=== PATIENT | male | born 1955 | race Caucasian/White ===

== ENCOUNTER 2016-10-21 22:15 | Emergency (ER) | payer MEDICARE, OTHER ==
[2016-10-21] MEDS ORDERED: Sodium Chloride 0.9% 10 ML Syringe FLUSH PRN (23:47)
[2016-10-21] MEDS ORDERED: HYDROmorphone 1 MG/ML Syringe IVPUSH ONE (23:48)
[2016-10-21] MEDS ORDERED: Ondansetron 4 MG/2 ML SDV IVPUSH ONE (23:48)
[2016-10-22] MEDS ORDERED: Iopamidol 612 MG/ML 100 ML Bottle IV PRN (00:18)
[2016-10-22] MEDS ORDERED: Sodium Chloride 0.9% 75 ML IV ONE (00:18)
[2016-10-22] MEDS ORDERED: Sodium Chloride 0.9% 10 ML Syringe FLUSH PRN (00:18)
[2016-10-22] MEDS ORDERED: HYDROmorphone 1 MG/ML Syringe IVPUSH ONE (01:00)
[2016-10-22] MEDS ORDERED: Sodium Chloride 0.9% 1,000 ML IV SCH (01:15)
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
[2016-10-22 02:13] VITALS: BP 128/75
== END 2016-10-22 03:18 ==
LOC: JP.ED 22:15
DX: S22.5XXA Flail chest, initial encounter for closed fracture (principal); F32.9 Major depressive disorder, single episode, unspecified; R56.9 Unspecified convulsions; Z79.82 Long term (current) use of aspirin; Z79.899 Other long term (current) drug therapy; Z87.891 Personal history of nicotine dependence; Z98.890 Other specified postprocedural states; W01.190A Fall on same level from slipping, tripping and stumbling with subsequent striking against furniture, initial encounter
CPT/HCPCS: 36415; 71260; 80053; 84484; 85025; 85610; 85730; 93005; 93010; 96361; 96374; 96375; 96376; 99284; 99285; J1170; J2405; J7030; J7040; J7050; Q9967

== ENCOUNTER 2016-10-25 17:45 | Inpatient (IN) | payer MEDICARE, OTHER ==
[2016-10-25] MEDS ORDERED: HYDROmorphone 1 MG/ML Syringe IVPUSH ONE (18:04)
[2016-10-25] MEDS ORDERED: Sodium Chloride 0.9% 10 ML Syringe FLUSH PRN (18:05)
[2016-10-25] MEDS ORDERED: Lactated Ringers 1,000 ML IV ONE (18:05)
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
[2016-10-25] MEDS ORDERED: Propofol 200 MG/20 ML SDV ONE (18:39)
[2016-10-25] MEDS ORDERED: Bupivacaine 0.5%/EPINEPHrine 1:200,000 50 ML MDV ONE (19:00)
[2016-10-25] MEDS ORDERED: Ondansetron 4 MG/2 ML SDV IVPUSH PRN (19:52)
[2016-10-25] MEDS: Labetalol 20 MG/4 ML Syringe IVPUSH PRN (20:14)
[2016-10-25] MEDS ORDERED: Dextrose 5%-0.45% NaCl 1,000 ML IV SCH (20:15)
[2016-10-25] MEDS ORDERED: Labetalol 20 MG/4 ML Syringe ONE (20:16)
[2016-10-25] MEDS: levETIRAcetam 250 MG Tab PO SCH (22:20)
[2016-10-25] MEDS: fentaNYL 100 MCG/2 ML SDV IVPUSH PRN (22:37)
[2016-10-26] MEDS: fentaNYL 100 MCG/2 ML SDV IVPUSH PRN ×6 (03:26→22:14)
[2016-10-26] MEDS ORDERED: D5 1/2 NS w/ 20 mEq/L KCl 1,000 ML ONE (06:45)
[2016-10-26] MEDS: D5 1/2 NS w/ 20 mEq/L KCl 1,000 ML IV SCH ×2 (06:47→16:13)
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
[2016-10-26] MEDS: Docusate Sodium 100 MG Cap PO SCH ×2 (08:37→20:48)
[2016-10-26] MEDS: Citalopram 20 MG Tab PO SCH (08:37)
[2016-10-26] MEDS: levETIRAcetam 250 MG Tab PO SCH ×2 (08:37→20:48)
--- NOTE | 2016-10-26 09:43 | CR ---
Portable chest Correlation is made with chest CT obtained 3 days earlier. There are no fractures of the left seventh-11th ribs. There is a moderate left pleural effusion. The re is a very tiny left apical pneumothorax. There is subcutaneous emphysema along the lateral left c hest wall. The right lung is unremarkable. The heart and vascular structures are within normal limit s. Impression: 1. Multiple left-sided rib fractures. Moderate left pleural effusion. No significant pneumothorax.
--- NOTE | 2016-10-26 09:45 | CR ---
Portable chest Comparison: One hour prior. There has been interval placement of a left chest tube. The left chest tube is visualized in the low er left hemithorax. There is mild reduction in the size of the left effusion. There is no significan t pneumothorax. Again noted are multiple left sided rib fractures. There is a continuous air along t he lateral chest wall. Impression: 1. Interval placement of left chest tube with mild decrease of left pleural effusion. There is no si gnificant pneumothorax. 2. Multiple left rib fractures.
--- NOTE | 2016-10-26 09:47 | CR ---
Portable chest Comparison: Previous day. The left chest tube the lower hemithorax is unchanged. There is mild reduction of the left pleural e ffusion. There is a tiny left apical pneumothorax. There is lateral chest wall air. The heart and va scular structures are stable. Impression: 1. Left chest tube. Interval decrease of left pleural effusion. 2. Tiny left apical pneumothorax.
[2016-10-26] MEDS: Labetalol 20 MG/4 ML Syringe IVPUSH PRN (16:26)
[2016-10-26] MEDS ORDERED: D5 1/2 NS w/ 20 mEq/L KCl 1,000 ML IV SCH (17:30)
[2016-10-26] MEDS: Nitroglycerin 2% Oint 1 GM UD Packet TOP SCH (17:34)
[2016-10-27] MEDS: fentaNYL 100 MCG/2 ML SDV IVPUSH PRN ×5 (02:55→19:51)
[2016-10-27] MEDS: Docusate Sodium 100 MG Cap PO SCH ×2 (08:10→20:59)
[2016-10-27] MEDS: Citalopram 20 MG Tab PO SCH (08:10)
[2016-10-27] MEDS: levETIRAcetam 250 MG Tab PO SCH ×2 (08:11→20:59)
[2016-10-27] MEDS: Nitroglycerin 2% Oint 1 GM UD Packet TOP SCH (08:11)
--- NOTE | 2016-10-27 09:17 | CR ---
Portable chest Comparison: Previous day. Findings: Multiple left rib fractures are again noted. There is chest wall emphysema on the left. Th ere is no pneumothorax visualized. There is bone loss of the left lung as well as a small pleural ef fusion. Impression: 1. Left-sided rib fractures. No evidence of significant pneumothorax. 2. Small left pleural effusion and left basilar volume loss.
--- NOTE | 2016-10-27 10:36 | PCM.SURGPN ---
- General Info Date of Service: 10/27/16 Date of Surgery/Procedure: 10/25/16 POD#: 2 Post-Op Diagnosis: Left hemothorax Admission Diagnosis/Problem: Hemothorax Functional Status: Reports: pain controlled, tolerating diet, ambulating, urinating, incentive spirometry - Review of Systems General: Reports: No Symptoms HEENT: Reports: no symptoms Pulmonary: Reports: no symptoms Cardiovascular: Reports: No Symptoms Gastrointestinal: Reports: No symptoms, Flatus, Other (Had a BM) Genitourinary: Reports: no symptoms Musculoskeletal: Reports: no symptoms Skin: Reports: no symptoms Neurological: Reports: No Symptoms Psychiatric: Reports: no symptoms - Patient Data Vitals - most recent: Last Vital Signs Temp 98.6 F 10/27/16 08:00 Pulse 70 10/27/16 08:00 Resp 20 10/27/16 09:37 BP 146/90 H 10/27/16 08:00 Pulse Ox 93 L 10/27/16 09:37 Weight - most recent: 146 lb 9.718 oz I&O - last 24 hours: Intake & Output 10/26/16 10/27/16 10/27/16 22:59 06:59 14:59 Intake Total 2149 273 480 Output Total 400 1210 300 Balance 1749 -937 180 Lab Results last 24 hrs: Laboratory Results - last 24 hr 10/26/16 10/26/16 10/27/16 Range/Units 11:59 17:53 00:01 WBC 10.9 10.6 10.8 (4.5-11.0) K/uL RBC 3.01 L 2.90 L 2.79 L (4.30-5.90) M/uL Hgb 9.9 L 9.9 L 9.4 L (12.0-15.0) g/dL Hct 29.0 L 28.2 L 27.0 L (40.0-54.0) % MCV 96 97 97 (80-98) fL MCH 33 H 34 H 34 H (27-31) pg MCHC 34 35 35 (32-36) % Plt Count 215 193 207 (150-400) K/uL 10/27/16 Range/Units 05:58 WBC 10.0 (4.5-11.0) K/uL RBC 2.69 L (4.30-5.90) M/uL Hgb 8.9 L (12.0-15.0) g/dL Hct 25.9 L (40.0-54.0) % MCV 96 (80-98) fL MCH 33 H (27-31) pg MCHC 34 (32-36) % Plt Count 199 (150-400) K/uL Med Orders - Current: Current Medications Citalopram Hydrobromide (Celexa) 40 mg PO DAILY [facility] Last Admin: 10/27/16 08:10 Dose: 40 mg Clonidine HCl (Catapres) 0.1 mg PO BID [facility] Docusate Sodium (Colace) 100 mg PO BID [facility] Last Admin: 10/27/16 08:10 Dose: 100 mg Fentanyl (Sublimaze) 50 mcg IVPUSH Q1H PRN PRN Reason: Pain (severe 7-10) Last Admin: 10/27/16 10:03 Dose: 50 mcg Potassium Chloride/Dextrose/Sod Cl (D5 1/2 Ns W/ 20 Meq/L Kcl) 1,000 mls @ 25 mls/hr IV ASDIRECTED [facility] Labetalol HCl (Normodyne) 0 mg IVPUSH Q1H PRN; Protocol PRN Reason: Hypertension Last Admin: 10/26/16 16:26 Dose: 15 mg Levetiracetam (Keppra) 500 mg PO BID [facility] Last Admin: 10/27/16 08:11 Dose: 500 mg Nitroglycerin (Nitro-Bid 2%) 1 gm TOP DAILY [facility] Last Admin: 10/27/16 08:11 Dose: 1 gm Ondansetron HCl (Zofran) 4 mg IVPUSH Q6H PRN PRN Reason: Nausea/Vomiting Sodium Chloride (Saline Flush) 10 ml FLUSH ASDIRECTED PRN PRN Reason: Keep Vein Open Last Admin: 10/25/16 18:31 Dose: 10 ml Discontinued Medications Bupivacaine HCl/Epinephrine Bitart ([place] 0.5%/Epinephrine 1:200,000) Confirm Administered Dose 50 ml .ROUTE .STK-MED ONE Stop: 10/25/16 19:01 Last Admin: 10/25/16 20:03 Dose: 10 ml Hydromorphone HCl (Dilaudid) 1 mg IVPUSH ONETIME ONE Stop: 10/25/16 18:05 Last Admin: 10/26/16 08:14 Dose: Not Given Lactated Ringer's (Ringers, Lactated) 1,000 mls @ 999 mls/hr IV BOLUS ONE Stop: 10/25/16 19:05 Last Admin: 10/25/16 18:05 Dose: 999 mls/hr Dextrose/Sodium Chloride (Dextrose 5%-1/2 Ns) 1,000 mls @ 125 mls/hr IV ASDIRECTED [facility] Last Admin: 10/26/16 01:00 Dose: 125 mls/hr Potassium Chloride/Dextrose/Sod Cl (D5 1/2 Ns W/ 20 Meq/L Kcl) 1,000 mls @ 100 mls/hr IV ASDIRECTED [facility] Last Admin: 10/26/16 16:13 Dose: 100 mls/hr Potassium Chloride/Dextrose/Sod Cl (D5 1/2 Ns W/ 20 Meq/L Kcl) Confirm Administered Dose 1,000 mls @ as directed .ROUTE .STK-MED ONE Stop: 10/26/16 06:46 Last Admin: 10/26/16 06:50 Dose: 100 ml Labetalol HCl (Normodyne) Confirm Administered Dose 20 mg .ROUTE .STK-MED ONE Stop: 10/25/16 20:17 Last Admin: 10/25/16 23:30 Dose: Not Given Propofol (Diprivan 20 Ml) Confirm Administered Dose 200 mg .ROUTE .STK-MED ONE Stop: 10/25/16 18:40 - Exam Wound/Incisions: dressing dry and intact, drainage (Chest tube), other (Large left flank ecchymosis) General: alert, oriented, cooperative, no acute distress Lungs: Normal respiratory effort, Other (Crepitus, left) Cardiovascular: Regular Rate, Regular Rhythm Abdomen: bowel sounds present, soft, no tenderness, no distension Extremities: no edema Skin: warm, intact Neurological: no new focal deficit Psy/Mental Status: alert, normal affect, normal mood - Problem List & Annotations (1) Hemothorax on left SNOMED Code(s): 86616197 Code(s): J94.2 - HEMOTHORAX Status: Acute Current Visit: Yes - Problem List Review Problem List Initiated/Reviewed/Updated: Yes - My Orders Last 24 Hours: Active Orders 24 hr Category Date Time Status CXR [Chest 1V Frontal] [CR] DAILY Exams 10/28/16 05:00 Ordered CXR [Chest 1V Frontal] [CR] DAILY Exams 04/30/17 05:00 Ordered CXR [Chest 1V Frontal] [CR] DAILY Exams 10/30/16 05:00 Ordered CBC W/O DIFF,HEMOGRAM [HEME] Q6H Lab 10/27/16 11:59 Ordered CBC W/O DIFF,HEMOGRAM [HEME] Q6H Lab 10/27/16 17:59 Ordered CBC W/O DIFF,HEMOGRAM [HEME] Q6H Lab 10/27/16 23:59 Ordered CBC W/O DIFF,HEMOGRAM [HEME] Q6H Lab 10/28/16 05:59 Ordered CBC W/O DIFF,HEMOGRAM [HEME] Q6H Lab 10/28/16 11:59 Ordered CBC W/O DIFF,HEMOGRAM [HEME] Q6H Lab 10/28/16 17:59 Ordered D5 1/2 NS w/ 20 mEq/L KCl 1,000 ml Med 10/26/16 17:30 Active IV ASDIRECTED Nitroglycerin [Nitro-Bid 2%] Med 10/26/16 17:30 Active 1 gm TOP DAILY cloNIDine [Catapres] Med 10/27/16 10:30 Active 0.1 mg PO BID Medication Orders Citalopram Hydrobromide (Celexa) 40 mg PO DAILY [facility] Last Admin: 10/27/16 08:10 Dose: 40 mg Admin: 10/26/16 08:37 Dose: 40 mg Clonidine HCl (Catapres) 0.1 mg PO BID [facility] Docusate Sodium (Colace) 100 mg PO BID [facility] Last Admin: 10/27/16 08:10 Dose: 100 mg Admin: 10/26/16 20:48 Dose: 100 mg Admin: 10/26/16 08:37 Dose: 100 mg Fentanyl (Sublimaze) 50 mcg IVPUSH Q1H PRN PRN Reason: Pain (severe 7-10) Last Admin: 10/27/16 10:03 Dose: 50 mcg Admin: 10/27/16 08:11 Dose: 50 mcg Admin: 10/27/16 02:55 Dose: 50 mcg Admin: 10/26/16 22:14 Dose: 50 mcg Admin: 10/26/16 20:53 Dose: 50 mcg Admin: 10/26/16 15:03 Dose: 50 mcg Admin: 10/26/16 08:38 Dose: 50 mcg Admin: 10/26/16 04:50 Dose: 50 mcg Admin: 10/26/16 03:26 Dose: 50 mcg Admin: 10/25/16 22:37 Dose: 50 mcg Potassium Chloride/Dextrose/Sod Cl (D5 1/2 Ns W/ 20 Meq/L Kcl) 1,000 mls @ 25 mls/hr IV ASDIRECTED [facility] Labetalol HCl (Normodyne) 0 mg IVPUSH Q1H PRN; Protocol PRN Reason: Hypertension Last Admin: 10/26/16 16:26 Dose: 15 mg Admin: 10/25/16 20:14 Dose: 10 mg Levetiracetam (Keppra) 500 mg PO BID [facility] Last Admin: 10/27/16 08:11 Dose: 500 mg Admin: 10/26/16 20:48 Dose: 500 mg Admin: 10/26/16 08:37 Dose: 500 mg Admin: 10/25/16 22:20 Dose: 500 mg Nitroglycerin (Nitro-Bid 2%) 1 gm TOP DAILY [facility] Last Admin: 10/27/16 08:11 Dose: 1 gm Admin: 10/26/16 17:34 Dose: 1 gm Ondansetron HCl (Zofran) 4 mg IVPUSH Q6H PRN PRN Reason: Nausea/Vomiting Sodium Chloride (Saline Flush) 10 ml FLUSH ASDIRECTED PRN PRN Reason: Keep Vein Open Last Admin: 10/25/16 18:31 Dose: 10 ml - Assessment Assessment (Free Text/Narrative):: His Hgb is slowly falling. CXR still with fluid in his left base. Subcutaneous emphysema. His BP has been up to a high of 203 systolic. No evidence of DT's. - Plan Plan (Free Text/Narrative):: Clonidine 0.1 mg po bid. Vitamin K. Continue to follow.
[2016-10-27] MEDS: cloNIDine 0.1 MG Tab PO SCH ×2 (10:42→20:58)
--- NOTE | 2016-10-27 10:43 | PCM.SURGPN ---
- General Info Date of Service: 10/26/16 Date of Surgery/Procedure: 10/25/16 POD#: 1 Functional Status: Reports: pain controlled, urinating, incentive spirometry - Review of Systems General: Reports: No Symptoms HEENT: Reports: no symptoms Pulmonary: Reports: no symptoms Cardiovascular: Reports: No Symptoms Gastrointestinal: Reports: No symptoms Genitourinary: Reports: no symptoms Musculoskeletal: Reports: no symptoms Skin: Reports: no symptoms Neurological: Reports: No Symptoms Psychiatric: Reports: no symptoms - Patient Data Vitals - most recent: Last Vital Signs Temp 98.6 F 10/27/16 08:00 Pulse 70 10/27/16 08:00 Resp 20 10/27/16 09:37 BP 146/90 H 10/27/16 08:00 Pulse Ox 93 L 10/27/16 09:37 Weight - most recent: 146 lb 9.718 oz I&O - last 24 hours: Intake & Output 10/26/16 10/27/16 10/27/16 22:59 06:59 14:59 Intake Total 2149 273 480 Output Total 400 1210 300 Balance 1749 -937 180 Lab Results last 24 hrs: Laboratory Results - last 24 hr 10/26/16 10/26/16 10/27/16 Range/Units 11:59 17:53 00:01 WBC 10.9 10.6 10.8 (4.5-11.0) K/uL RBC 3.01 L 2.90 L 2.79 L (4.30-5.90) M/uL Hgb 9.9 L 9.9 L 9.4 L (12.0-15.0) g/dL Hct 29.0 L 28.2 L 27.0 L (40.0-54.0) % MCV 96 97 97 (80-98) fL MCH 33 H 34 H 34 H (27-31) pg MCHC 34 35 35 (32-36) % Plt Count 215 193 207 (150-400) K/uL 10/27/16 Range/Units 05:58 WBC 10.0 (4.5-11.0) K/uL RBC 2.69 L (4.30-5.90) M/uL Hgb 8.9 L (12.0-15.0) g/dL Hct 25.9 L (40.0-54.0) % MCV 96 (80-98) fL MCH 33 H (27-31) pg MCHC 34 (32-36) % Plt Count 199 (150-400) K/uL Med Orders - Current: Current Medications Citalopram Hydrobromide (Celexa) 40 mg PO DAILY [facility] Last Admin: 10/27/16 08:10 Dose: 40 mg Clonidine HCl (Catapres) 0.1 mg PO BID [facility] Docusate Sodium (Colace) 100 mg PO BID [facility] Last Admin: 10/27/16 08:10 Dose: 100 mg Fentanyl (Sublimaze) 50 mcg IVPUSH Q1H PRN PRN Reason: Pain (severe 7-10) Last Admin: 10/27/16 10:03 Dose: 50 mcg Potassium Chloride/Dextrose/Sod Cl (D5 1/2 Ns W/ 20 Meq/L Kcl) 1,000 mls @ 25 mls/hr IV ASDIRECTED [facility] Labetalol HCl (Normodyne) 0 mg IVPUSH Q1H PRN; Protocol PRN Reason: Hypertension Last Admin: 10/26/16 16:26 Dose: 15 mg Levetiracetam (Keppra) 500 mg PO BID [facility] Last Admin: 10/27/16 08:11 Dose: 500 mg Nitroglycerin (Nitro-Bid 2%) 1 gm TOP DAILY [facility] Last Admin: 10/27/16 08:11 Dose: 1 gm Ondansetron HCl (Zofran) 4 mg IVPUSH Q6H PRN PRN Reason: Nausea/Vomiting Sodium Chloride (Saline Flush) 10 ml FLUSH ASDIRECTED PRN PRN Reason: Keep Vein Open Last Admin: 10/25/16 18:31 Dose: 10 ml Discontinued Medications Bupivacaine HCl/Epinephrine Bitart (Marcaine 0.5%/Epinephrine 1:200,000) Confirm Administered Dose 50 ml .ROUTE .STK-MED ONE Stop: 10/25/16 19:01 Last Admin: 10/25/16 20:03 Dose: 10 ml Hydromorphone HCl (Dilaudid) 1 mg IVPUSH ONETIME ONE Stop: 10/25/16 18:05 Last Admin: 10/26/16 08:14 Dose: Not Given Lactated Ringer's (Ringers, Lactated) 1,000 mls @ 999 mls/hr IV BOLUS ONE Stop: 10/25/16 19:05 Last Admin: 10/25/16 18:05 Dose: 999 mls/hr Dextrose/Sodium Chloride (Dextrose 5%-1/2 Ns) 1,000 mls @ 125 mls/hr IV ASDIRECTED [facility] Last Admin: 10/26/16 01:00 Dose: 125 mls/hr Potassium Chloride/Dextrose/Sod Cl (D5 1/2 Ns W/ 20 Meq/L Kcl) 1,000 mls @ 100 mls/hr IV ASDIRECTED [facility] Last Admin: 10/26/16 16:13 Dose: 100 mls/hr Potassium Chloride/Dextrose/Sod Cl (D5 1/2 Ns W/ 20 Meq/L Kcl) Confirm Administered Dose 1,000 mls @ as directed .ROUTE .STK-MED ONE Stop: 10/26/16 06:46 Last Admin: 10/26/16 06:50 Dose: 100 ml Labetalol HCl (Normodyne) Confirm Administered Dose 20 mg .ROUTE .STK-MED ONE Stop: 10/25/16 20:17 Last Admin: 10/25/16 23:30 Dose: Not Given Propofol (Diprivan 20 Ml) Confirm Administered Dose 200 mg .ROUTE .STK-MED ONE Stop: 10/25/16 18:40 - Exam Wound/Incisions: drainage (Chest tube.) General: alert, oriented, cooperative, no acute distress Lungs: Normal respiratory effort, Other (Crepitus, left.) Cardiovascular: Regular Rate, Regular Rhythm Abdomen: bowel sounds present, soft, no tenderness, no distension Extremities: no edema Skin: warm, dry, intact Neurological: no new focal deficit, normal speech Psy/Mental Status: alert, normal affect, normal mood - Problem List & Annotations (1) Hemothorax on left SNOMED Code(s): 88533992 Code(s): J94.2 - HEMOTHORAX Status: Acute Current Visit: Yes - Problem List Review Problem List Initiated/Reviewed/Updated: Yes - My Orders Last 24 Hours: Active Orders 24 hr Category Date Time Status CXR [Chest 1V Frontal] [CR] DAILY Exams 10/28/16 05:00 Ordered CXR [Chest 1V Frontal] [CR] DAILY Exams 10/29/16 05:00 Ordered CXR [Chest 1V Frontal] [CR] DAILY Exams 10/30/16 05:00 Ordered CBC W/O DIFF,HEMOGRAM [HEME] Q6H Lab 10/27/16 11:59 Ordered CBC W/O DIFF,HEMOGRAM [HEME] Q6H Lab 10/27/16 17:59 Ordered CBC W/O DIFF,HEMOGRAM [HEME] Q6H Lab 10/27/16 23:59 Ordered CBC W/O DIFF,HEMOGRAM [HEME] Q6H Lab 10/28/16 05:59 Ordered CBC W/O DIFF,HEMOGRAM [HEME] Q6H Lab 10/28/16 11:59 Ordered CBC W/O DIFF,HEMOGRAM [HEME] Q6H Lab 10/28/16 17:59 Ordered D5 1/2 NS w/ 20 mEq/L KCl 1,000 ml Med 10/26/16 17:30 Active IV ASDIRECTED Nitroglycerin [Nitro-Bid 2%] Med 10/26/16 17:30 Active 1 gm TOP DAILY cloNIDine [Catapres] Med 10/27/16 10:30 Active 0.1 mg PO BID Medication Orders Citalopram Hydrobromide (Celexa) 40 mg PO DAILY [facility] Last Admin: 10/27/16 08:10 Dose: 40 mg Admin: 10/26/16 08:37 Dose: 40 mg Clonidine HCl (Catapres) 0.1 mg PO BID [facility] Docusate Sodium (Colace) 100 mg PO BID [facility] Last Admin: 10/27/16 08:10 Dose: 100 mg Admin: 10/26/16 20:48 Dose: 100 mg Admin: 10/26/16 08:37 Dose: 100 mg Fentanyl (Sublimaze) 50 mcg IVPUSH Q1H PRN PRN Reason: Pain (severe 7-10) Last Admin: 10/27/16 10:03 Dose: 50 mcg Admin: 10/27/16 08:11 Dose: 50 mcg Admin: 10/27/16 02:55 Dose: 50 mcg Admin: 10/26/16 22:14 Dose: 50 mcg Admin: 10/26/16 20:53 Dose: 50 mcg Admin: 10/26/16 15:03 Dose: 50 mcg Admin: 10/26/16 08:38 Dose: 50 mcg Admin: 10/26/16 04:50 Dose: 50 mcg Admin: 10/26/16 03:26 Dose: 50 mcg Admin: 10/25/16 22:37 Dose: 50 mcg Potassium Chloride/Dextrose/Sod Cl (D5 1/2 Ns W/ 20 Meq/L Kcl) 1,000 mls @ 25 mls/hr IV ASDIRECTED [facility] Labetalol HCl (Normodyne) 0 mg IVPUSH Q1H PRN; Protocol PRN Reason: Hypertension Last Admin: 10/26/16 16:26 Dose: 15 mg Admin: 10/25/16 20:14 Dose: 10 mg Levetiracetam (Keppra) 500 mg PO BID [facility] Last Admin: 10/27/16 08:11 Dose: 500 mg Admin: 10/26/16 20:48 Dose: 500 mg Admin: 10/26/16 08:37 Dose: 500 mg Admin: 10/25/16 22:20 Dose: 500 mg Nitroglycerin (Nitro-Bid 2%) 1 gm TOP DAILY [facility] Last Admin: 10/27/16 08:11 Dose: 1 gm Admin: 10/26/16 17:34 Dose: 1 gm Ondansetron HCl (Zofran) 4 mg IVPUSH Q6H PRN PRN Reason: Nausea/Vomiting Sodium Chloride (Saline Flush) 10 ml FLUSH ASDIRECTED PRN PRN Reason: Keep Vein Open Last Admin: 10/25/16 18:31 Dose: 10 ml - Assessment Assessment (Free Text/Narrative):: No evidence of DT's. Hgb down a little. - Plan Plan (Free Text/Narrative):: Feed him.
[2016-10-27] MEDS: Ferrous Sulfate 325 MG Tab PO SCH (16:31)
[2016-10-27] MEDS: Labetalol 20 MG/4 ML Syringe IVPUSH PRN (18:01)
[2016-10-28] MEDS: fentaNYL 100 MCG/2 ML SDV IVPUSH PRN (01:59)
[2016-10-28] MEDS: Docusate Sodium 100 MG Cap PO SCH ×2 (08:00→21:14)
[2016-10-28] MEDS: Ferrous Sulfate 325 MG Tab PO SCH ×2 (08:00→16:36)
[2016-10-28] MEDS: cloNIDine 0.1 MG Tab PO SCH ×2 (08:00→21:14)
[2016-10-28] MEDS: Citalopram 20 MG Tab PO SCH (08:01)
[2016-10-28] MEDS: levETIRAcetam 250 MG Tab PO SCH ×2 (08:01→21:15)
--- NOTE | 2016-10-28 10:48 | PCM.SURGPN ---
- General Info Date of Service: 10/28/16 Date of Surgery/Procedure: 10/18/16 POD#: 3 Post-Op Diagnosis: Left Hemothorax Functional Status: Reports: pain controlled, tolerating diet, ambulating (With chest tube. ), urinating, incentive spirometry - Review of Systems General: Reports: No Symptoms HEENT: Reports: no symptoms Pulmonary: Reports: no symptoms Cardiovascular: Reports: No Symptoms Gastrointestinal: Reports: No symptoms Genitourinary: Reports: no symptoms Musculoskeletal: Reports: no symptoms Skin: Reports: no symptoms Neurological: Reports: No Symptoms Psychiatric: Reports: no symptoms - Patient Data Vitals - most recent: Last Vital Signs Temp 98 F 10/28/16 07:57 Pulse 68 10/28/16 07:57 Resp 21 H 10/28/16 07:57 BP 142/72 H 10/28/16 08:00 Pulse Ox 93 L 10/28/16 07:57 Weight - most recent: 146 lb 9.718 oz I&O - last 24 hours: Intake & Output 10/27/16 10/28/16 10/28/16 22:59 06:59 14:59 Intake Total 1023 404 480 Output Total 1000 2430 Balance 480 Lab Results last 24 hrs: Laboratory Results - last 24 hr 10/27/16 10/27/16 10/27/16 Range/Units 10:52 11:58 17:59 WBC 11.1 H 12.3 H (4.5-11.0) K/uL RBC 2.78 L 2.97 L (4.30-5.90) M/uL Hgb 9.1 L 10.1 L (12.0-15.0) g/dL Hct 26.9 L 28.8 L (40.0-54.0) % MCV 97 97 (80-98) fL MCH 33 H 34 H (27-31) pg MCHC 34 35 (32-36) % Plt Count 226 238 (150-400) K/uL Iron 25 L (65-175) ug/dL 10/27/16 10/28/16 Range/Units 23:59 05:32 WBC 9.5 8.6 (4.5-11.0) K/uL RBC 2.45 L 2.50 L (4.30-5.90) M/uL Hgb 8.1 L D 8.4 L (12.0-15.0) g/dL Hct 23.8 L 24.3 L (40.0-54.0) % MCV 97 97 (80-98) fL MCH 33 H 34 H (27-31) pg MCHC 34 35 (32-36) % Plt Count 207 214 (150-400) K/uL Iron (65-175) ug/dL Med Orders - Current: Current Medications Hydrocodone Bitart/Acetaminophen ([place] 325-5 Mg) 1 - 2 tab PO Q4H PRN PRN Reason: Pain Citalopram Hydrobromide (Celexa) 40 mg PO DAILY [facility] Last Admin: 10/28/16 08:01 Dose: 40 mg Clonidine HCl (Catapres) 0.1 mg PO BID [facility] Last Admin: 10/28/16 08:00 Dose: 0.1 mg Docusate Sodium (Colace) 100 mg PO BID [facility] Last Admin: 10/28/16 08:00 Dose: 100 mg Fentanyl (Sublimaze) 50 mcg IVPUSH Q1H PRN PRN Reason: Pain (severe 7-10) Last Admin: 10/28/16 01:59 Dose: 50 mcg Ferrous Sulfate (Ferrous Sulfate) 325 mg PO BIDMEALS [facility] Last Admin: 10/28/16 08:00 Dose: 325 mg Potassium Chloride/Dextrose/Sod Cl (D5 1/2 Ns W/ 20 Meq/L Kcl) 1,000 mls @ 25 mls/hr IV ASDIRECTED [facility] Labetalol HCl (Normodyne) 0 mg IVPUSH Q1H PRN; Protocol PRN Reason: Hypertension Last Admin: 10/27/16 18:01 Dose: 15 mg Levetiracetam (Keppra) 500 mg PO BID [facility] Last Admin: 10/28/16 08:01 Dose: 500 mg Ondansetron HCl (Zofran) 4 mg IVPUSH Q6H PRN PRN Reason: Nausea/Vomiting Sodium Chloride (Saline Flush) 10 ml FLUSH ASDIRECTED PRN PRN Reason: Keep Vein Open Last Admin: 10/25/16 18:31 Dose: 10 ml Discontinued Medications Bupivacaine HCl/Epinephrine Bitart (Marcaine 0.5%/Epinephrine 1:200,000) Confirm Administered Dose 50 ml .ROUTE .STK-MED ONE Stop: 10/25/16 19:01 Last Admin: 04/26/17 20:03 Dose: 10 ml Hydromorphone HCl (Dilaudid) 1 mg IVPUSH ONETIME ONE Stop: 10/25/16 18:05 Last Admin: 10/26/16 08:14 Dose: Not Given Lactated Ringer's (Ringers, Lactated) 1,000 mls @ 999 mls/hr IV BOLUS ONE Stop: 10/25/16 19:05 Last Admin: 10/25/16 18:05 Dose: 999 mls/hr Dextrose/Sodium Chloride (Dextrose 5%-1/2 Ns) 1,000 mls @ 125 mls/hr IV ASDIRECTED [facility] Last Admin: 10/26/16 01:00 Dose: 125 mls/hr Potassium Chloride/Dextrose/Sod Cl (D5 1/2 Ns W/ 20 Meq/L Kcl) 1,000 mls @ 100 mls/hr IV ASDIRECTED [facility] Last Admin: 10/26/16 16:13 Dose: 100 mls/hr Potassium Chloride/Dextrose/Sod Cl (D5 1/2 Ns W/ 20 Meq/L Kcl) Confirm Administered Dose 1,000 mls @ as directed .ROUTE .STK-MED ONE Stop: 10/26/16 06:46 Last Admin: 10/26/16 06:50 Dose: 100 ml Labetalol HCl (Normodyne) Confirm Administered Dose 20 mg .ROUTE .STK-MED ONE Stop: 10/25/16 20:17 Last Admin: 10/25/16 23:30 Dose: Not Given Nitroglycerin (Nitro-Bid 2%) 1 gm TOP DAILY [facility] Last Admin: 10/27/16 08:11 Dose: 1 gm Phytonadione ([place]phy[place]) 5 mg IM ONETIME ONE Stop: 10/27/16 10:49 Last Admin: 10/27/16 11:57 Dose: 5 mg Propofol (Diprivan 20 Ml) Confirm Administered Dose 200 mg .ROUTE .STK-MED ONE Stop: 10/25/16 18:40 - Exam Wound/Incisions: dressing dry and intact, drainage (Chest tube output) Quality Assessment: supplemental oxygen General: alert, oriented, cooperative Lungs: Normal respiratory effort, Decreased breath sounds (Left base with some crepitus. ) Cardiovascular: Regular Rate, Regular Rhythm Abdomen: bowel sounds present, soft, no tenderness, no distension Extremities: no edema Skin: warm, dry, intact Neurological: no new focal deficit Psy/Mental Status: alert, normal affect, normal mood - Problem List & Annotations (1) Hemothorax on left SNOMED Code(s): 48730245 Code(s): J94.2 - HEMOTHORAX Status: Acute Current Visit: Yes - Problem List Review Problem List Initiated/Reviewed/Updated: Yes - My Orders Last 24 Hours: Active Orders 24 hr Category Date Time Status Transfer Patient (Change bed) [ADT] Routine ADT 10/28/16 10:35 Ordered CXR [Chest 1V Frontal] [CR] DAILY Exams 10/28/16 05:00 Taken CXR [Chest 1V Frontal] [CR] DAILY Exams 10/29/16 05:00 Ordered CXR [Chest 1V Frontal] [CR] DAILY Exams 10/30/16 05:00 Ordered CBC W/O DIFF,HEMOGRAM [HEME] BID Lab 10/28/16 19:00 Ordered CBC W/O DIFF,HEMOGRAM [HEME] BID Lab 10/29/16 19:00 Ordered CBC W/O DIFF,HEMOGRAM [HEME] BID Lab 10/30/16 19:00 Ordered CBC W/O DIFF,HEMOGRAM [HEME] BID Lab 10/31/16 19:00 Ordered Acetaminophen/HYDROcodone [[place] 325-5 MG] Med 10/28/16 10:34 Ordered 1 - 2 tab PO Q4H PRN Ferrous Sulfate Med 10/27/16 17:00 Active 325 mg PO BIDMEALS cloNIDine [Catapres] Med 10/27/16 10:30 Active 0.1 mg PO BID Convert IV to Saline Lock [OM.PC] Routine Oth 10/28/16 10:33 Ordered Medication Orders Hydrocodone Bitart/Acetaminophen ([place] 325-5 Mg) 1 - 2 tab PO Q4H PRN PRN Reason: Pain Citalopram Hydrobromide (Celexa) 40 mg PO DAILY [facility] Last Admin: 10/28/16 08:01 Dose: 40 mg Admin: 10/27/16 08:10 Dose: 40 mg Admin: 10/26/16 08:37 Dose: 40 mg Clonidine HCl (Catapres) 0.1 mg PO BID [facility] Last Admin: 10/28/16 08:00 Dose: 0.1 mg Admin: 10/27/16 20:58 Dose: 0.1 mg Admin: 10/27/16 10:42 Dose: 0.1 mg Docusate Sodium (Colace) 100 mg PO BID [facility] Last Admin: 10/28/16 08:00 Dose: 100 mg Admin: 10/27/16 20:59 Dose: 100 mg Admin: 10/27/16 08:10 Dose: 100 mg Admin: 10/26/16 20:48 Dose: 100 mg Admin: 10/26/16 08:37 Dose: 100 mg Fentanyl (Sublimaze) 50 mcg IVPUSH Q1H PRN PRN Reason: Pain (severe 7-10) Last Admin: 10/28/16 01:59 Dose: 50 mcg Admin: 10/27/16 19:51 Dose: 50 mcg Admin: 10/27/16 12:04 Dose: 50 mcg Admin: 10/27/16 10:03 Dose: 50 mcg Admin: 10/27/16 08:11 Dose: 50 mcg Admin: 10/27/16 02:55 Dose: 50 mcg Admin: 10/26/16 22:14 Dose: 50 mcg Admin: 10/26/16 20:53 Dose: 50 mcg Admin: 10/26/16 15:03 Dose: 50 mcg Admin: 10/26/16 08:38 Dose: 50 mcg Admin: 10/26/16 04:50 Dose: 50 mcg Admin: 10/26/16 03:26 Dose: 50 mcg Admin: 10/25/16 22:37 Dose: 50 mcg Ferrous Sulfate (Ferrous Sulfate) 325 mg PO BIDMEALS [facility] Last Admin: 10/28/16 08:00 Dose: 325 mg Admin: 10/27/16 16:31 Dose: 325 mg Potassium Chloride/Dextrose/Sod Cl (D5 1/2 Ns W/ 20 Meq/L Kcl) 1,000 mls @ 25 mls/hr IV ASDIRECTED [facility] Labetalol HCl (Normodyne) 0 mg IVPUSH Q1H PRN; Protocol PRN Reason: Hypertension Last Admin: 10/27/16 18:01 Dose: 15 mg Admin: 10/26/16 16:26 Dose: 15 mg Admin: 10/25/16 20:14 Dose: 10 mg Levetiracetam (Keppra) 500 mg PO BID [facility] Last Admin: 10/28/16 08:01 Dose: 500 mg Admin: 10/27/16 20:59 Dose: 500 mg Admin: 10/27/16 08:11 Dose: 500 mg Admin: 10/26/16 20:48 Dose: 500 mg Admin: 10/26/16 08:37 Dose: 500 mg Admin: 10/25/16 22:20 Dose: 500 mg Ondansetron HCl (Zofran) 4 mg IVPUSH Q6H PRN PRN Reason: Nausea/Vomiting Sodium Chloride (Saline Flush) 10 ml FLUSH ASDIRECTED PRN PRN Reason: Keep Vein Open Last Admin: 10/25/16 18:31 Dose: 10 ml - Assessment Assessment (Free Text/Narrative):: He is doing well. His CXR shows his left lower hemothorax is not completely evacuated. - Plan Plan (Free Text/Narrative):: Discussed with him and his about thoracoscopy vs thoracotomy to evacuate the clot. He would need a blood transfusion before we would do this, current Hgb is 8.4.
[2016-10-28] MEDS: Acetaminophen/HYDROcodone 325-5 MG Tab PO PRN ×3 (11:06→21:14)
[2016-10-29] MEDS: Acetaminophen/HYDROcodone 325-5 MG Tab PO PRN ×4 (00:58→20:32)
[2016-10-29] MEDS ORDERED: Bupivacaine 0.5%/EPINEPHrine 1:200,000 50 ML MDV ONE (06:29)
[2016-10-29] MEDS ORDERED: ceFAZolin 2 GM in Premix Bag 1 BAG IV ONE (08:00)
[2016-10-29] MEDS ORDERED: Ondansetron 4 MG/2 ML SDV ONE (08:47)
[2016-10-29] MEDS ORDERED: Rocuronium 50 MG/5 ML Vial ONE ×2 (08:47→09:37)
[2016-10-29] MEDS ORDERED: Neostigmine Methylsulfate 1 MG/ML 5 ML Syringe ONE (08:47)
[2016-10-29] MEDS ORDERED: Dexamethasone 4 MG/ML SDV ONE (08:47)
[2016-10-29] MEDS ORDERED: Propofol 200 MG/20 ML SDV ONE (08:47)
[2016-10-29] MEDS ORDERED: fentaNYL 250 MCG/5 ML SDV ONE ×2 (08:48→09:43)
[2016-10-29] MEDS ORDERED: Lactated Ringers 1,000 ML ONE (10:35)
[2016-10-29] MEDS: Citalopram 20 MG Tab PO SCH (12:13)
[2016-10-29] MEDS: Ferrous Sulfate 325 MG Tab PO SCH ×2 (12:13→16:46)
[2016-10-29] MEDS: cloNIDine 0.1 MG Tab PO SCH ×2 (12:13→20:32)
[2016-10-29] MEDS: Docusate Sodium 100 MG Cap PO SCH ×2 (12:14→20:32)
[2016-10-29] MEDS: levETIRAcetam 250 MG Tab PO SCH ×2 (12:14→20:32)
[2016-10-29] MEDS: Labetalol 20 MG/4 ML Syringe IVPUSH PRN (13:34)
[2016-10-29] MEDS: D5 1/2 NS w/ 20 mEq/L KCl 1,000 ML IV SCH (15:56)
[2016-10-29] MEDS: fentaNYL 100 MCG/2 ML SDV IVPUSH PRN ×2 (16:01→19:13)
[2016-10-30] MEDS: fentaNYL 100 MCG/2 ML SDV IVPUSH PRN ×2 (00:18→03:51)
[2016-10-30] MEDS: D5 1/2 NS w/ 20 mEq/L KCl 1,000 ML IV SCH ×2 (03:52→18:38)
[2016-10-30] MEDS: Docusate Sodium 100 MG Cap PO SCH ×2 (08:10→21:04)
[2016-10-30] MEDS: Ferrous Sulfate 325 MG Tab PO SCH ×2 (08:10→17:16)
[2016-10-30] MEDS: cloNIDine 0.1 MG Tab PO SCH ×2 (08:11→21:04)
[2016-10-30] MEDS: Citalopram 20 MG Tab PO SCH (08:12)
[2016-10-30] MEDS: levETIRAcetam 250 MG Tab PO SCH ×2 (08:12→21:05)
[2016-10-30] MEDS: Acetaminophen/HYDROcodone 325-5 MG Tab PO PRN (08:16)
--- NOTE | 2016-10-30 10:56 | CR ---
Chest 1V Frontal HISTORY: Chest tube COMPARISON: 10/29/2016 FINDINGS: 2 chest tubes at the left lung base. Cardiac size stable. Tiny left-sided apical pneumotho rax. No new infiltrates.
--- NOTE | 2016-10-30 10:57 | CR ---
Chest 1V Frontal HISTORY: Chest tube COMPARISON: 10/28/2016. FINDINGS: 2 left-sided chest tubes. Tiny apical pneumothorax. Most of the fluid has been evacuated f rom the left lung base. Interval placement of a second chest tube.
--- NOTE | 2016-10-30 10:58 | CR ---
Chest 1V Frontal HISTORY: Chest tube COMPARISON: 10/28/2016 FINDINGS: Left-sided chest tube unchanged there remains some density at the left lung base. Tiny lef t apical pneumothorax.
--- NOTE | 2016-10-30 11:00 | CR ---
Chest 1V Frontal HISTORY: Chest tube COMPARISON: 10/27/2016 FINDINGS: Left lung base chest tube with persistent opacity at the left lung base. Multiple left-tonja ed rib fractures. Persistent density left lung base tiny apical pneumothorax.
--- NOTE | 2016-10-30 13:35 | OR ---
DATE OF PROCEDURE: 10/29/2016 PREOPERATIVE DIAGNOSIS: Persistent left chest traumatic hematoma. POSTOPERATIVE DIAGNOSIS: Persistent left chest traumatic hematoma. PROCEDURE: Thoracoscopic evacuation of left chest hematoma. ANESTHESIA: Double-lumen general endotracheal. INDICATION: This 61-year-old white male fell a week ago on his left chest suffering a flail chest. He was transferred to [place] where a chest tube was placed. His pneumothorax resolved. Four days ago, his chest tube was removed and he was released to return to [place]. En route, he says he coughed and blood came out of his chest tube site. He came into the emergency room in [place] and a chest x-ray showed a large left hemothorax. He was taken to the operating room, and a 36-[place] right angle chest tube was placed. This evacuated a lot of hematoma, but still did not do a complete job. He has a persistent left hemothorax. He was taken to the operating room for evacuation of his left hemothorax. We are hoping to do this using the thoracoscope. I counseled him for surgery including risks and alternatives and he gave his informed consent to proceed. DESCRIPTION OF PROCEDURE: The patient's left chest was prepped and draped in the usual sterile fashion. Time-out was held. The chest tube was removed. A skin incision was made posterior to this and a 12 mm port was introduced into the abdomen. The camera was introduced into the abdomen and we encountered a lot of adherent clot. With extensive irrigation, blunt removal of clot, and aspiration of clot, we were able to essentially clear his left chest of his hemothorax. With no more blood was seen, we examined his former chest tube site. There was a small drip of blood coming from this. We used a fascial closure device to put an 0 Vicryl stitch in this to control the bleeding. All then looked well. We placed a 36-[place] right angled tube along the diaphragm, and a 32-[place] straight chest tube going more superiorly. We then reinflated the left lung and all looked well. The tubes were anchored with #1 Ethibond suture. The former chest tube site from [place] was closed with skin amaya. A sterile dressing was applied. He was placed supine. The anesthesia was reversed. He was extubated and brought to recovery room in good condition. Chest x-ray shows the lung to be fully expanded. He does have an air leak now. Glenroy Cervantes MD /[id number] [email or web address]
--- NOTE | 2016-10-30 16:04 | PCM.SURGPN ---
- General Info Date of Service: 10/29/16 Date of Surgery/Procedure: 10/30/16 POD#: 1 Post-Op Diagnosis: Thoracic hematoma Functional Status: Reports: pain controlled, ambulating (Limited to bedside area due to chest tube. ), urinating, incentive spirometry - Review of Systems General: Reports: No Symptoms HEENT: Reports: no symptoms Pulmonary: Reports: no symptoms Cardiovascular: Reports: No Symptoms Gastrointestinal: Reports: No symptoms, Other (Very hungry. ) Genitourinary: Reports: no symptoms Musculoskeletal: Reports: no symptoms Skin: Reports: no symptoms Neurological: Reports: No Symptoms Psychiatric: Reports: no symptoms - Patient Data Vitals - most recent: Last Vital Signs Temp 98.4 F 10/30/16 14:31 Pulse 72 10/30/16 14:31 Resp 18 10/30/16 14:31 BP 113/66 10/30/16 14:31 Pulse Ox 93 L 10/30/16 14:31 Weight - most recent: 146 lb 9.718 oz I&O - last 24 hours: Intake & Output 10/30/16 10/30/16 10/30/16 06:59 14:59 22:59 Intake Total 899 1440 Output Total 1605 460 Balance -706 980 Lab Results last 24 hrs: Laboratory Results - last 24 hr 10/28/16 10/29/16 10/30/16 Range/Units 15:54 17:25 05:51 WBC 17.6 H (4.5-11.0) K/uL RBC 3.65 L (4.30-5.90) M/uL Hgb 11.5 L (12.0-15.0) g/dL Hct 33.8 L (40.0-54.0) % MCV 93 (80-98) fL MCH 32 H (27-31) pg MCHC 34 (32-36) % Plt Count 294 (150-400) K/uL Sodium 138 L (140-148) mmol/L Potassium 4.1 (3.6-5.2) mmol/L Chloride 104 (100-108) mmol/L Carbon Dioxide 32 (21-32) mmol/L Anion Gap 6.1 (5.0-14.0) mmol/L BUN 6 L (7-18) mg/dL Creatinine 0.9 (0.8-1.3) mg/dL Est Cr Clr Drug Dosing 79.02 mL/min Estimated GFR (MDRD) > 60 (>60) Glucose 124 H (74-106) mg/dL Calcium 7.7 L (8.5-10.1) mg/dL Crossmatch See Detail 10/30/16 Range/Units 05:51 WBC 14.1 H (4.5-11.0) K/uL RBC 3.43 L (4.30-5.90) M/uL Hgb 10.7 L (12.0-15.0) g/dL Hct 32.3 L (40.0-54.0) % MCV 94 (80-98) fL MCH 31 (27-31) pg MCHC 33 (32-36) % Plt Count 311 (150-400) K/uL Sodium (140-148) mmol/L Potassium (3.6-5.2) mmol/L Chloride (100-108) mmol/L Carbon Dioxide (21-32) mmol/L Anion Gap (5.0-14.0) mmol/L BUN (7-18) mg/dL Creatinine (0.8-1.3) mg/dL Est Cr Clr Drug Dosing mL/min Estimated GFR (MDRD) (>60) Glucose (74-106) mg/dL Calcium (8.5-10.1) mg/dL Crossmatch Med Orders - Current: Current Medications Hydrocodone Bitart/Acetaminophen ([place] 325-5 Mg) 1 - 2 tab PO Q4H PRN PRN Reason: Pain Last Admin: 10/30/16 08:16 Dose: 2 tab Citalopram Hydrobromide (Celexa) 40 mg PO DAILY [facility] Last Admin: 10/30/16 08:12 Dose: 40 mg Clonidine HCl (Catapres) 0.1 mg PO BID [facility] Last Admin: 10/30/16 08:11 Dose: 0.1 mg Docusate Sodium (Colace) 100 mg PO BID [facility] Last Admin: 10/30/16 08:10 Dose: 100 mg Fentanyl (Sublimaze) 50 mcg IVPUSH Q1H PRN PRN Reason: Pain (severe 7-10) Last Admin: 10/30/16 03:51 Dose: 50 mcg Ferrous Sulfate (Ferrous Sulfate) 325 mg PO BIDMEALS [facility] Last Admin: 10/30/16 08:10 Dose: 325 mg Potassium Chloride/Dextrose/Sod Cl (D5 1/2 Ns W/ 20 Meq/L Kcl) 1,000 mls @ 75 mls/hr IV ASDIRECTED [facility] Last Admin: 10/30/16 03:52 Dose: 75 mls/hr Labetalol HCl (Normodyne) 0 mg IVPUSH Q1H PRN; Protocol PRN Reason: Hypertension Last Admin: 10/29/16 13:34 Dose: 15 mg Levetiracetam (Keppra) 500 mg PO BID [facility] Last Admin: 10/30/16 08:12 Dose: 500 mg Ondansetron HCl (Zofran) 4 mg IVPUSH Q6H PRN PRN Reason: Nausea/Vomiting Sodium Chloride (Saline Flush) 10 ml FLUSH ASDIRECTED PRN PRN Reason: Keep Vein Open Last Admin: 10/25/16 18:31 Dose: 10 ml Discontinued Medications Bupivacaine HCl/Epinephrine Bitart (Marcaine 0.5%/Epinephrine 1:200,000) Confirm Administered Dose 50 ml .ROUTE .STK-MED ONE Stop: 10/25/16 19:01 Last Admin: 10/25/16 20:03 Dose: 10 ml Bupivacaine HCl/Epinephrine Bitart (Marcaine 0.5%/Epinephrine 1:200,000) Confirm Administered Dose 50 ml .ROUTE .STK-MED ONE Stop: 10/29/16 06:30 Last Admin: 10/29/16 10:07 Dose: 20 ml Dexamethasone (Dexamethasone) Confirm Administered Dose 4 mg .ROUTE .STK-MED ONE Stop: 10/29/16 08:48 Fentanyl (Sublimaze) Confirm Administered Dose 250 mcg .ROUTE .STK-MED ONE Stop: 10/29/16 08:49 Fentanyl (Sublimaze) Confirm Administered Dose 250 mcg .ROUTE .STK-MED ONE Stop: 10/29/16 09:44 Glycopyrrolate () Confirm Administered Dose 1 mg .ROUTE .STK-MED ONE Stop: 10/29/16 08:48 Hydromorphone HCl (Dilaudid) 1 mg IVPUSH ONETIME ONE Stop: 10/25/16 18:05 Last Admin: 10/26/16 08:14 Dose: Not Given Lactated Ringer's (Ringers, Lactated) 1,000 mls @ 999 mls/hr IV BOLUS ONE Stop: 10/25/16 19:05 Last Admin: 10/25/16 18:05 Dose: 999 mls/hr Dextrose/Sodium Chloride (Dextrose 5%-1/2 Ns) 1,000 mls @ 125 mls/hr IV ASDIRECTED [facility] Last Admin: 10/26/16 01:00 Dose: 125 mls/hr Potassium Chloride/Dextrose/Sod Cl (D5 1/2 Ns W/ 20 Meq/L Kcl) 1,000 mls @ 100 mls/hr IV ASDIRECTED [facility] Last Admin: 10/26/16 16:13 Dose: 100 mls/hr Potassium Chloride/Dextrose/Sod Cl (D5 1/2 Ns W/ 20 Meq/L Kcl) Confirm Administered Dose 1,000 mls @ as directed .ROUTE .STK-MED ONE Stop: 10/26/16 06:46 Last Admin: 10/26/16 06:50 Dose: 100 ml Potassium Chloride/Dextrose/Sod Cl (D5 1/2 Ns W/ 20 Meq/L Kcl) 1,000 mls @ 25 mls/hr IV ASDIRECTED [facility] Last Admin: 10/28/16 15:59 Dose: 25 mls/hr Cefazolin Sodium/Dextrose 2 gm (/ Premix) 50 mls @ 100 mls/hr IV ONETIME ONE Stop: 10/29/16 08:29 Last Admin: 10/29/16 08:26 Dose: 100 mls/hr Lactated Ringer's (Ringers, Lactated) Confirm Administered Dose 1,000 mls @ as directed .ROUTE .STK-MED ONE Stop: 10/29/16 10:36 Labetalol HCl (Normodyne) Confirm Administered Dose 20 mg .ROUTE .STK-MED ONE Stop: 10/25/16 20:17 Last Admin: 10/25/16 23:30 Dose: Not Given Neostigmine Methylsulfate (Neostigmine) Confirm Administered Dose 5 mg .ROUTE .STK-MED ONE Stop: 10/29/16 08:48 Nitroglycerin (Nitro-Bid 2%) 1 gm TOP DAILY [facility] Last Admin: 10/27/16 08:11 Dose: 1 gm Ondansetron HCl (Zofran) Confirm Administered Dose 4 mg .ROUTE .STK-MED ONE Stop: 10/29/16 08:48 Phytonadione (Aquamephyton) 5 mg IM ONETIME ONE Stop: 10/27/16 10:49 Last Admin: 10/27/16 11:57 Dose: 5 mg Propofol (Diprivan 20 Ml) Confirm Administered Dose 200 mg .ROUTE .STK-MED ONE Stop: 10/25/16 18:40 Propofol (Diprivan 20 Ml) Confirm Administered Dose 200 mg .ROUTE .STK-MED ONE Stop: 10/29/16 08:48 Rocuronium [place] (Zemuron) Confirm Administered Dose 50 mg .ROUTE .STK-MED ONE Stop: 10/29/16 08:48 Rocuronium [place] (Zemuron) Confirm Administered Dose 50 mg .ROUTE .STK-MED ONE Stop: 10/29/16 09:38 - Exam Wound/Incisions: no drainage (Except from chest tube. ) Quality Assessment: urine catheter General: alert, oriented, cooperative, no acute distress Lungs: Clear to auscultation, Normal respiratory effort Cardiovascular: Regular Rate, Regular Rhythm, No Murmurs Abdomen: bowel sounds present, soft, no tenderness, no distension Extremities: no edema Skin: warm, dry, intact Neurological: no new focal deficit Psy/Mental Status: alert, normal affect, normal mood - Problem List & Annotations (1) Hemothorax on left SNOMED Code(s): 22284913 Code(s): J94.2 - HEMOTHORAX Status: Acute Current Visit: Yes - Problem List Review Problem List Initiated/Reviewed/Updated: Yes - My Orders Last 24 Hours: Active Orders 24 hr Category Date Time Status Transfer Patient (Change bed) [ADT] Routine ADT 10/30/16 10:22 Ordered Regular Diet [DIET] Diet 10/30/16 Lunch Active Medication Orders Hydrocodone Bitart/Acetaminophen ([place] 325-5 Mg) 1 - 2 tab PO Q4H PRN PRN Reason: Pain Last Admin: 10/30/16 08:16 Dose: 2 tab Admin: 10/29/16 20:32 Dose: 2 tab Admin: 10/29/16 13:12 Dose: 2 tab Admin: 10/29/16 05:22 Dose: 2 tab Admin: 10/29/16 00:58 Dose: 2 tab Admin: 10/28/16 21:14 Dose: 2 tab Admin: 10/28/16 15:39 Dose: 2 tab Admin: 10/28/16 11:06 Dose: 2 tab Citalopram Hydrobromide (Celexa) 40 mg PO DAILY [facility] Last Admin: 10/30/16 08:12 Dose: 40 mg Admin: 10/29/16 12:13 Dose: 40 mg Admin: 10/28/16 08:01 Dose: 40 mg Admin: 10/27/16 08:10 Dose: 40 mg Admin: 10/26/16 08:37 Dose: 40 mg Clonidine HCl (Catapres) 0.1 mg PO BID [facility] Last Admin: 10/30/16 08:11 Dose: 0.1 mg Admin: 10/29/16 20:32 Dose: 0.1 mg Admin: 10/29/16 12:13 Dose: 0.1 mg Admin: 10/28/16 21:14 Dose: 0.1 mg Admin: 10/28/16 08:00 Dose: 0.1 mg Admin: 10/27/16 20:58 Dose: 0.1 mg Admin: 10/27/16 10:42 Dose: 0.1 mg Docusate Sodium (Colace) 100 mg PO BID [facility] Last Admin: 10/30/16 08:10 Dose: 100 mg Admin: 10/29/16 20:32 Dose: 100 mg Admin: 10/29/16 12:14 Dose: 100 mg Admin: 10/28/16 21:14 Dose: 100 mg Admin: 10/28/16 08:00 Dose: 100 mg Admin: 10/27/16 20:59 Dose: 100 mg Admin: 10/27/16 08:10 Dose: 100 mg Admin: 10/26/16 20:48 Dose: 100 mg Admin: 10/26/16 08:37 Dose: 100 mg Fentanyl (Sublimaze) 50 mcg IVPUSH Q1H PRN PRN Reason: Pain (severe 7-10) Last Admin: 10/30/16 03:51 Dose: 50 mcg Admin: 10/30/16 00:18 Dose: 50 mcg Admin: 10/29/16 19:13 Dose: 50 mcg Admin: 10/29/16 16:01 Dose: 50 mcg Admin: 10/28/16 01:59 Dose: 50 mcg Admin: 10/27/16 19:51 Dose: 50 mcg Admin: 10/27/16 12:04 Dose: 50 mcg Admin: 10/27/16 10:03 Dose: 50 mcg Admin: 10/27/16 08:11 Dose: 50 mcg Admin: 10/27/16 02:55 Dose: 50 mcg Admin: 10/26/16 22:14 Dose: 50 mcg Admin: 10/26/16 20:53 Dose: 50 mcg Admin: 10/26/16 15:03 Dose: 50 mcg Admin: 10/26/16 08:38 Dose: 50 mcg Admin: 10/26/16 04:50 Dose: 50 mcg Admin: 10/26/16 03:26 Dose: 50 mcg Admin: 10/25/16 22:37 Dose: 50 mcg Ferrous Sulfate (Ferrous Sulfate) 325 mg PO BIDMEALS [facility] Last Admin: 10/30/16 08:10 Dose: 325 mg Admin: 10/29/16 16:46 Dose: 325 mg Admin: 10/29/16 12:13 Dose: 325 mg Admin: 10/28/16 16:36 Dose: 325 mg Admin: 10/28/16 08:00 Dose: 325 mg Admin: 10/27/16 16:31 Dose: 325 mg Potassium Chloride/Dextrose/Sod Cl (D5 1/2 Ns W/ 20 Meq/L Kcl) 1,000 mls @ 75 mls/hr IV ASDIRECTED [facility] Last Admin: 10/30/16 03:52 Dose: 75 mls/hr Infusion: 10/30/16 03:52 Dose: 75 mls/hr Admin: 10/29/16 15:56 Dose: 75 mls/hr Labetalol HCl (Normodyne) 0 mg IVPUSH Q1H PRN; Protocol PRN Reason: Hypertension Last Admin: 10/29/16 13:34 Dose: 15 mg Admin: 10/27/16 18:01 Dose: 15 mg Admin: 10/26/16 16:26 Dose: 15 mg Admin: 10/25/16 20:14 Dose: 10 mg Levetiracetam (Keppra) 500 mg PO BID [facility] Last Admin: 10/30/16 08:12 Dose: 500 mg Admin: 10/29/16 20:32 Dose: 500 mg Admin: 10/29/16 12:14 Dose: 500 mg Admin: 10/28/16 21:15 Dose: 500 mg Admin: 10/28/16 08:01 Dose: 500 mg Admin: 10/27/16 20:59 Dose: 500 mg Admin: 10/27/16 08:11 Dose: 500 mg Admin: 10/26/16 20:48 Dose: 500 mg Admin: 10/26/16 08:37 Dose: 500 mg Admin: 10/25/16 22:20 Dose: 500 mg Ondansetron HCl (Zofran) 4 mg IVPUSH Q6H PRN PRN Reason: Nausea/Vomiting Sodium Chloride (Saline Flush) 10 ml FLUSH ASDIRECTED PRN PRN Reason: Keep Vein Open Last Admin: 10/25/16 18:31 Dose: 10 ml - Assessment Assessment (Free Text/Narrative):: CXR shows lung is inflated. Hgb is stable. - Plan Plan (Free Text/Narrative):: Regular diet. D/C [place]. Transfer to Medical/Surgical floor.
[2016-10-31] MEDS ORDERED: Bisacodyl 5 MG Tab PO ONE (06:34)
[2016-10-31] MEDS ORDERED: Magnesium Hydroxide 400 MG/5 ML Susp 30 ML Cup PO PRN (06:35)
[2016-10-31] MEDS: D5 1/2 NS w/ 20 mEq/L KCl 1,000 ML IV SCH ×2 (08:22→21:48)
[2016-10-31] MEDS: Citalopram 20 MG Tab PO SCH (08:24)
[2016-10-31] MEDS: levETIRAcetam 250 MG Tab PO SCH ×2 (08:25→21:03)
[2016-10-31] MEDS: Docusate Sodium 100 MG Cap PO SCH ×2 (08:25→21:04)
[2016-10-31] MEDS: cloNIDine 0.1 MG Tab PO SCH ×2 (08:25→21:04)
[2016-10-31] MEDS: Ferrous Sulfate 325 MG Tab PO SCH ×2 (08:25→18:23)
--- NOTE | 2016-10-31 09:16 | CR ---
Portable chest. Findings: Heart size within normal limits. Right lung is clear. 2 chest tubes are within the left mary ng base. Subcutaneous air within the soft tissues. Left lower broken rib fractures. Tiny left apical pneumothorax less than 1 cm in thickness.
[2016-10-31] MEDS: Acetaminophen/HYDROcodone 325-5 MG Tab PO PRN (21:00)
[2016-11-01] MEDS: Ferrous Sulfate 325 MG Tab PO SCH ×2 (08:24→17:56)
[2016-11-01] MEDS: cloNIDine 0.1 MG Tab PO SCH ×2 (08:24→21:27)
[2016-11-01] MEDS: Citalopram 20 MG Tab PO SCH (08:25)
[2016-11-01] MEDS: Docusate Sodium 100 MG Cap PO SCH ×2 (08:25→21:27)
[2016-11-01] MEDS: levETIRAcetam 250 MG Tab PO SCH ×2 (08:25→21:27)
--- NOTE | 2016-11-01 09:18 | CR ---
Heart size within normal limits. Right lung is clear. Chest tubes left lung base. Left rib fractures or thoracotomy change. Tiny left apical pneumothorax similar. Small left pleural effusion. atelecta sis or infiltrate left lung base similar.
[2016-11-01] MEDS ORDERED: Bisacodyl 10 MG Supp RECTAL ONE (10:30)
[2016-11-01] MEDS: D5 1/2 NS w/ 20 mEq/L KCl 1,000 ML IV SCH (11:11)
--- NOTE | 2016-11-01 14:17 | PCM.SURGPN ---
- General Info Date of Service: 11/01/16 Date of Surgery/Procedure: 10/29/16 POD#: 3 Post-Op Diagnosis: Thoracic hematoma. Functional Status: Reports: pain controlled, tolerating diet, ambulating (As allowed by chest tube. ), urinating, incentive spirometry - Review of Systems General: Reports: No Symptoms HEENT: Reports: no symptoms Pulmonary: Reports: no symptoms Cardiovascular: Reports: No Symptoms Gastrointestinal: Reports: No symptoms, Other (Had BM.) Genitourinary: Reports: no symptoms Musculoskeletal: Reports: no symptoms Skin: Reports: no symptoms Neurological: Reports: No Symptoms Psychiatric: Reports: no symptoms - Patient Data Vitals - most recent: Last Vital Signs Temp 98.0 F 11/01/16 11:43 Pulse 68 11/01/16 11:43 Resp 16 11/01/16 11:43 BP 98/57 L 11/01/16 11:43 Pulse Ox 96 11/01/16 13:57 Weight - most recent: 146 lb 9.718 oz I&O - last 24 hours: Intake & Output 10/31/16 11/01/16 11/01/16 22:59 06:59 14:59 Intake Total 1068 1030 240 Output Total 1400 1105 Balance -332 -75 240 Lab Results last 24 hrs: Laboratory Results - last 24 hr 10/28/16 11/01/16 Range/Units 15:54 04:20 WBC 8.9 (4.5-11.0) K/uL RBC 3.56 L (4.30-5.90) M/uL Hgb 11.3 L (12.0-15.0) g/dL Hct 33.9 L (40.0-54.0) % MCV 95 (80-98) fL MCH 32 H (27-31) pg MCHC 33 (32-36) % Plt Count 368 (150-400) K/uL Crossmatch See Detail Med Orders - Current: Current Medications Hydrocodone Bitart/Acetaminophen (Accident 325-5 Mg) 1 - 2 tab PO Q4H PRN PRN Reason: Pain Last Admin: 10/31/16 21:00 Dose: 2 tab Citalopram Hydrobromide (Celexa) 40 mg PO DAILY ALPHONSO Last Admin: 11/01/16 08:25 Dose: 40 mg Clonidine HCl (Catapres) 0.1 mg PO BID [facility] Last Admin: 11/01/16 08:24 Dose: 0.1 mg Docusate Sodium (Colace) 100 mg PO BID [facility] Last Admin: 11/01/16 08:25 Dose: 100 mg Fentanyl (Sublimaze) 50 mcg IVPUSH Q1H PRN PRN Reason: Pain (severe 7-10) Last Admin: 10/30/16 03:51 Dose: 50 mcg [facility]ous Sulf[facility] ([facility] S[facility]ate) [facility] Last Admin: 11/01/16 08:24 Dose: 325 mg Potassium Chloride/Dextrose/Sod Cl (D5 1/2 Ns W/ 20 Meq/L Kcl) 1,000 mls @ 75 mls/hr IV ASDIRECTED [facility] Last Admin: 11/01/16 11:11 Dose: 75 mls/hr Labetalol HCl (Normodyne) 0 mg IVPUSH Q1H PRN; Protocol PRN Reason: Hypertension Last Admin: 10/29/16 13:34 Dose: 15 mg Levetiracetam (Keppra) 500 mg PO BID [facility] Last Admin: 11/01/16 08:25 Dose: 500 mg Magnesium Hydroxide (Milk Of Magnesia) 30 ml PO BID PRN PRN Reason: Constipation Last Admin: 10/31/16 10:02 Dose: 30 ml Ondansetron HCl (Zofran) 4 mg IVPUSH Q6H PRN PRN Reason: Nausea/Vomiting Sodium Chloride (Saline Flush) 10 ml FLUSH ASDIRECTED PRN PRN Reason: Keep Vein Open Last Admin: 10/25/16 18:31 Dose: 10 ml Discontinued Medications Bisacodyl (Dulcolax) 10 mg PO ONETIME ONE Stop: 10/31/16 06:35 Last Admin: 10/31/16 08:24 Dose: 10 mg Bisacodyl (Dulcolax) 10 mg RECTAL ONETIME ONE Stop: 11/01/16 10:31 Last Admin: 11/01/16 11:11 Dose: Not Given Bupivacaine HCl/Epinephrine Bitart (Marcaine 0.5%/Epinephrine 1:200,000) Confirm Administered Dose 50 ml .ROUTE .STK-MED ONE Stop: 10/25/16 19:01 Last Admin: 10/25/16 20:03 Dose: 10 ml Bupivacaine HCl/Epinephrine Bitart (Marcaine 0.5%/Epinephrine 1:200,000) Confirm Administered Dose 50 ml .ROUTE .[facility] ONE Stop: 10/29/16 06:30 Last Admin: 10/29/16 10:07 Dose: 20 ml Dexamethasone (Dexamethasone) Confirm Administered Dose 4 mg .ROUTE .[facility] ONE Stop: 10/29/16 08:48 Fentanyl (Sublimaze) Confirm Administered Dose 250 mcg .ROUTE .[facility] ONE Stop: 10/29/16 08:49 Fentanyl (Sublimaze) Confirm Administered Dose 250 mcg .ROUTE .[facility] ONE Stop: 10/29/16 09:44 Glycopyrrolate () Confirm Administered Dose 1 mg .ROUTE .[facility] ONE Stop: 10/29/16 08:48 Hydromorphone HCl (Dilaudid) 1 mg IVPUSH ONETIME ONE Stop: 10/25/16 18:05 Last Admin: 10/26/16 08:14 Dose: Not Given Lactated Ringer's (Ringers, Lactated) 1,000 mls @ 999 mls/hr IV BOLUS ONE Stop: 10/25/16 19:05 Last Admin: 10/25/16 18:05 Dose: 999 mls/hr Dextrose/Sodium Chloride (Dextrose 5%-1/2 Ns) 1,000 mls @ 125 [facility] Last Admin: 10/26/16 01:00 Dose: 125 mls/hr Potassium Chloride/Dextrose/Sod Cl (D5 1/2 Ns W/ 20 Meq/L Kcl) 1,000 mls [facility] Last Admin: 10/26/16 16:13 Dose: 100 mls/hr Potassium Chloride/Dextrose/Sod Cl (D5 1/2 Ns W/ 20 Meq/L Kcl) Confirm Administered Dose 1,000 mls @ as directed .ROUTE .[facility] ONE Stop: 10/26/16 06:46 Last Admin: 10/26/16 06:50 Dose: 100 ml Potassium Chloride/Dextrose/Sod Cl (D5 1/2 Ns W/ 20 Meq/L Kcl) 1,000 mls @ 25 mls[facility]hr [facility] Last Admin: 10/28/16 15:59 Dose: 25 mls/hr Cefazolin Sodium/Dextrose 2 gm (/ Premix) 50 mls @ 100 mls/hr IV ONETIME ONE Stop: 10/29/16 08:29 Last Admin: 10/29/16 08:26 Dose: 100 mls/hr Lactated Ringer's (Ringers, Lactated) Confirm Administered Dose 1,000 mls @ as directed .ROUTE .STK-MED ONE Stop: 10/29/16 10:36 Labetalol HCl (Normodyne) Confirm Administered Dose 20 mg .ROUTE .STK-MED ONE Stop: 10/25/16 20:17 Last Admin: 10/25/16 23:30 Dose: Not Given Neostigmine Methylsulfate (Neostigmine) Confirm Administered Dose 5 mg .ROUTE .STK-MED ONE Stop: 10/29/16 08:48 Nitroglycerin (Nitro-Bid 2%) 1 gm TOP DAILY ALPHONSO Last Admin: 10/27/16 08:11 Dose: 1 gm Ondansetron HCl (Zofran) Confirm Administered Dose 4 mg .ROUTE .STK-MED ONE Stop: 10/29/16 08:48 Phytonadione (Aquamephyton) 5 mg IM ONETIME ONE Stop: 10/27/16 10:49 Last Admin: 10/27/16 11:57 Dose: 5 mg Propofol (Diprivan 20 Ml) Confirm Administered Dose 200 mg .ROUTE .STK-MED ONE Stop: 10/25/16 18:40 Propofol (Diprivan 20 Ml) Confirm Administered Dose 200 mg .ROUTE .STK-MED ONE Stop: 10/29/16 08:48 Rocuronium [place] (Zemuron) Confirm Administered Dose 50 mg .ROUTE .STK-MED ONE Stop: 10/29/16 08:48 Rocuronium [place] (Zemuron) Confirm Administered Dose 50 mg .ROUTE .STK-MED ONE Stop: 10/29/16 09:38 - Exam Wound/Incisions: healing well, no drainage (Chest tube about 50 ml's / 24 hours. ) General: alert, oriented, cooperative, no acute distress Lungs: Clear to auscultation, Normal respiratory effort (No air leak. ) Cardiovascular: Regular Rate, Regular Rhythm Abdomen: bowel sounds present, soft, no tenderness, no distension Extremities: no edema Skin: warm, dry, intact Neurological: no new focal deficit Psy/Mental Status: alert, normal affect - Problem List & Annotations (1) Hemothorax on left SNOMED Code(s): 82813758 Code(s): J94.2 - HEMOTHORAX Status: Acute Current Visit: Yes - Problem List Review Problem List Initiated/Reviewed/Updated: Yes - My Orders Last 24 Hours: Active Orders 24 hr Category Date Time Status Communication Order [RC] ASDIRECTED Care 11/01/16 10:09 Active Dressing Change [Wound Care] [RC] DAILY Care 11/01/16 10:00 Active CXR [Chest 1V Frontal] [CR] DAILY Exams 11/02/16 05:00 Ordered CXR [Chest 1V Frontal] [CR] DAILY Exams 11/03/16 05:00 Ordered CXR [Chest 1V Frontal] [CR] DAILY Exams 11/04/16 05:00 Ordered CXR [Chest 1V Frontal] [CR] DAILY Exams 11/05/16 05:00 Ordered CBC W/O DIFF,HEMOGRAM [HEME] DAILY Lab 11/02/16 05:11 Ordered CBC W/O DIFF,HEMOGRAM [HEME] DAILY Lab 11/03/16 05:11 Ordered CBC W/O DIFF,HEMOGRAM [HEME] DAILY Lab 11/04/16 05:11 Ordered CBC W/O DIFF,HEMOGRAM [HEME] DAILY Lab 11/05/16 05:11 Ordered CBC W/O DIFF,HEMOGRAM [HEME] DAILY Lab 11/06/16 05:11 Ordered Medication Orders Hydrocodone Bitart/Acetaminophen (Accident 325-5 Mg) 1 - 2 tab PO Q4H PRN PRN Reason: Pain Last Admin: 10/31/16 21:00 Dose: 2 tab Admin: 10/30/16 08:16 Dose: 2 tab Admin: 10/29/16 20:32 Dose: 2 tab Admin: 10/29/16 13:12 Dose: 2 tab Admin: 10/29/16 05:22 Dose: 2 tab Admin: 10/29/16 00:58 Dose: 2 tab Admin: 10/28/16 21:14 Dose: 2 tab Admin: 10/28/16 15:39 Dose: 2 tab Admin: 10/28/16 11:06 Dose: 2 tab Citalopram Hydrobromide (Celexa) 40 mg PO DAILY [facility] Last Admin: 11/01/16 08:25 Dose: 40 mg Admin: 10/31/16 08:24 Dose: 40 mg Admin: 10/30/16 08:12 Dose: 40 mg Admin: 10/29/16 12:13 Dose: 40 mg Admin: 10/28/16 08:01 Dose: 40 mg Admin: 10/27/16 08:10 Dose: 40 mg Admin: 10/26/16 08:37 Dose: 40 mg Clonidine HCl (Catapres) 0.1 mg PO BID [facility] Last Admin: 11/01/16 08:24 Dose: 0.1 mg Admin: 10/31/16 21:04 Dose: 0.1 mg Admin: 10/31/16 08:25 Dose: 0.1 mg Admin: 10/30/16 21:04 Dose: 0.1 mg Admin: 10/30/16 08:11 Dose: 0.1 mg Admin: 10/29/16 20:32 Dose: 0.1 mg Admin: 10/29/16 12:13 Dose: 0.1 mg Admin: 10/28/16 21:14 Dose: 0.1 mg Admin: 10/28/16 08:00 Dose: 0.1 mg Admin: 10/27/16 20:58 Dose: 0.1 mg Admin: 10/27/16 10:42 Dose: 0.1 mg Docusate Sodium (Colace) 100 mg PO BID [facility] Last Admin: 11/01/16 08:25 Dose: 100 mg Admin: 10/31/16 21:04 Dose: 100 mg Admin: 10/31/16 08:25 Dose: 100 mg Admin: 10/30/16 21:04 Dose: 100 mg Admin: 10/30/16 08:10 Dose: 100 mg Admin: 10/29/16 20:32 Dose: 100 mg Admin: 10/29/16 12:14 Dose: 100 mg Admin: 10/28/16 21:14 Dose: 100 mg Admin: 10/28/16 08:00 Dose: 100 mg Admin: 10/27/16 20:59 Dose: 100 mg Admin: 10/27/16 08:10 Dose: 100 mg Admin: 10/26/16 20:48 Dose: 100 mg Admin: 10/26/16 08:37 Dose: 100 mg Fentanyl (Sublimaze) 50 mcg IVPUSH Q1H PRN PRN Reason: Pain (severe 7-10) Last Admin: 10/30/16 03:51 Dose: 50 mcg Admin: 10/30/16 00:18 Dose: 50 mcg Admin: 10/29/16 19:13 Dose: 50 mcg Admin: 10/29/16 16:01 Dose: 50 mcg Admin: 10/28/16 01:59 Dose: 50 mcg Admin: 10/27/16 19:51 Dose: 50 mcg Admin: 10/27/16 12:04 Dose: 50 mcg Admin: 10/27/16 10:03 Dose: 50 mcg Admin: 10/27/16 08:11 Dose: 50 mcg Admin: 10/27/16 02:55 Dose: 50 mcg Admin: 10/26/16 22:14 Dose: 50 mcg Admin: 10/26/16 20:53 Dose: 50 mcg Admin: 10/26/16 15:03 Dose: 50 mcg Admin: 10/26/16 08:38 Dose: 50 mcg Admin: 10/26/16 04:50 Dose: 50 mcg Admin: 10/26/16 03:26 Dose: 50 mcg Admin: 10/25/16 22:37 Dose: 50 mcg Ferrous Sulfate (Ferrous Sulfate) 325 mg PO BIDMEALS [facility] Last Admin: 11/01/16 08:24 Dose: 325 mg Admin: 10/31/16 18:23 Dose: 325 mg Admin: 10/31/16 08:25 Dose: 325 mg Admin: 10/30/16 17:16 Dose: 325 mg Admin: 10/30/16 08:10 Dose: 325 mg Admin: 10/29/16 16:46 Dose: 325 mg Admin: 10/29/16 12:13 Dose: 325 mg Admin: 10/28/16 16:36 Dose: 325 mg Admin: 10/28/16 08:00 Dose: 325 mg Admin: 10/27/16 16:31 Dose: 325 mg Potassium Chloride/Dextrose/Sod Cl (D5 1/2 Ns W/ 20 Meq/L Kcl) 1,000 mls @ 75 mls/hr IV ASDIRECTED [facility] Last Admin: 11/01/16 11:11 Dose: 75 mls/hr Infusion: 11/01/16 11:08 Dose: 75 mls/hr Admin: 10/31/16 21:48 Dose: 75 mls/hr Infusion: 10/31/16 21:42 Dose: 75 mls/hr Admin: 10/31/16 08:22 Dose: 75 mls/hr Infusion: 10/31/16 07:58 Dose: 75 mls/hr Admin: 10/30/16 18:38 Dose: 75 mls/hr Infusion: 10/30/16 17:12 Dose: 75 mls/hr Admin: 10/30/16 03:52 Dose: 75 mls/hr Infusion: 10/30/16 03:52 Dose: 75 mls/hr Admin: 10/29/16 15:56 Dose: 75 mls/hr Labetalol HCl (Normodyne) 0 mg IVPUSH Q1H PRN; Protocol PRN Reason: Hypertension Last Admin: 10/29/16 13:34 Dose: 15 mg Admin: 10/27/16 18:01 Dose: 15 mg Admin: 10/26/16 16:26 Dose: 15 mg Admin: 10/25/16 20:14 Dose: 10 mg Levetiracetam (Keppra) 500 mg PO BID ALPHONSO Last Admin: 11/01/16 08:25 Dose: 500 mg Admin: 10/31/16 21:03 Dose: 500 mg Admin: 10/31/16 08:25 Dose: 500 mg Admin: 10/30/16 21:05 Dose: 500 mg Admin: 10/30/16 08:12 Dose: 500 mg Admin: 10/29/16 20:32 Dose: 500 mg Admin: 10/29/16 12:14 Dose: 500 mg Admin: 10/28/16 21:15 Dose: 500 mg Admin: 10/28/16 08:01 Dose: 500 mg Admin: 10/27/16 20:59 Dose: 500 mg Admin: 10/27/16 08:11 Dose: 500 mg Admin: 10/26/16 20:48 Dose: 500 mg Admin: 10/26/16 08:37 Dose: 500 mg Admin: 10/25/16 22:20 Dose: 500 mg Magnesium Hydroxide (Milk Of Magnesia) 30 ml PO BID PRN PRN Reason: Constipation Last Admin: 10/31/16 10:02 Dose: 30 ml Ondansetron HCl (Zofran) 4 mg IVPUSH Q6H PRN PRN Reason: Nausea/Vomiting Sodium Chloride (Saline Flush) 10 ml FLUSH ASDIRECTED PRN PRN Reason: Keep Vein Open Last Admin: 10/25/16 18:31 Dose: 10 ml - Assessment Assessment (Free Text/Narrative):: Doing well. Small apical pneumothorax per radiologist. - Plan Plan (Free Text/Narrative):: Chest tube to water seal. Pull tube tomorrow.
[2016-11-02] MEDS: D5 1/2 NS w/ 20 mEq/L KCl 1,000 ML IV SCH (00:37)
--- NOTE | 2016-11-02 06:35 | PCM.SURGPN ---
- General Info Date of Service: 11/02/16 Date of Surgery/Procedure: 10/29/16 POD#: 4 Post-Op Diagnosis: Thoracic hematoma Functional Status: Reports: pain controlled, tolerating diet, ambulating (To extent of chest. ) - Review of Systems General: Reports: No Symptoms HEENT: Reports: no symptoms Pulmonary: Reports: no symptoms Cardiovascular: Reports: No Symptoms Gastrointestinal: Reports: No symptoms Genitourinary: Reports: no symptoms Musculoskeletal: Reports: no symptoms Skin: Reports: no symptoms Neurological: Reports: No Symptoms Psychiatric: Reports: no symptoms - Patient Data Vitals - most recent: Last Vital Signs Temp 99.2 F 11/02/16 03:00 Pulse 72 11/02/16 03:00 Resp 16 11/02/16 03:00 BP 123/74 11/02/16 03:00 Pulse Ox 93 L 11/02/16 03:00 Weight - most recent: 146 lb 9.718 oz I&O - last 24 hours: Intake & Output 11/01/16 11/01/16 11/02/16 14:59 22:59 06:59 Intake Total 240 1638 1684 Output Total 1125 1440 Balance 240 513 244 Lab Results last 24 hrs: Laboratory Results - last 24 hr 10/28/16 11/02/16 Range/Units 20:52 05:11 WBC 9.8 (4.5-11.0) K/uL RBC 3.53 L (4.30-5.90) M/uL Hgb 11.0 L (12.0-15.0) g/dL Hct 33.6 L (40.0-54.0) % MCV 95 (80-98) fL MCH 31 (27-31) pg MCHC 33 (32-36) % Plt Count 417 H (150-400) K/uL Blood Type B POSITIVE Gel Antibody Screen Negative Crossmatch See Detail Med Orders - Current: Current Medications Hydrocodone Bitart/Acetaminophen ([place] 325-5 Mg) 1 - 2 tab PO Q4H PRN PRN Reason: Pain Last Admin: 10/31/16 21:00 Dose: 2 tab Citalopram Hydrobromide (Celexa) 40 mg PO DAILY [facility] Last Admin: 11/01/16 08:25 Dose: 40 mg Clonidine HCl (Catapres) 0.1 mg PO BID [facility] Last Admin: 11/01/16 21:27 Dose: 0.1 mg Docusate Sodium (Colace) 100 mg PO BID [facility] Last Admin: 11/01/16 21:27 Dose: 100 mg Fentanyl (Sublimaze) 50 mcg IVPUSH Q1H PRN PRN Reason: Pain (severe 7-10) Last Admin: 10/30/16 03:51 Dose: 50 mcg Ferrous Sulfate (Ferrous Sulfate) 325 mg PO BIDMEALS [facility] Last Admin: 11/01/16 17:56 Dose: 325 mg Potassium Chloride/Dextrose/Sod Cl (D5 1/2 Ns W/ 20 Meq/L Kcl) 1,000 mls @ 75 mls/hr IV ASDIRECTED [facility] Last Admin: 11/02/16 00:37 Dose: 75 mls/hr Labetalol HCl (Normodyne) 0 mg IVPUSH Q1H PRN; Protocol PRN Reason: Hypertension Last Admin: 10/29/16 13:34 Dose: 15 mg Levetiracetam (Keppra) 500 mg PO BID [facility] Last Admin: 11/01/16 21:27 Dose: 500 mg Magnesium Hydroxide (Milk Of Magnesia) 30 ml PO BID PRN PRN Reason: Constipation Last Admin: 10/31/16 10:02 Dose: 30 ml Ondansetron HCl (Zofran) 4 mg IVPUSH Q6H PRN PRN Reason: Nausea/Vomiting Sodium Chloride (Saline Flush) 10 ml FLUSH ASDIRECTED PRN PRN Reason: Keep Vein Open Last Admin: 10/25/16 18:31 Dose: 10 ml Discontinued Medications Bisacodyl (Dulcolax) 10 mg PO ONETIME ONE Stop: 10/31/16 06:35 Last Admin: 10/31/16 08:24 Dose: 10 mg Bisacodyl (Dulcolax) 10 mg RECTAL ONETIME ONE Stop: 11/01/16 10:31 Last Admin: 11/01/16 11:11 Dose: Not Given Bupivacaine HCl/Epinephrine Bitart (Marcaine 0.5%/Epinephrine 1:200,000) Confirm Administered Dose 50 ml .ROUTE .STK-MED ONE Stop: 10/25/16 19:01 Last Admin: 10/25/16 20:03 Dose: 10 ml Bupivacaine HCl/Epinephrine Bitart (Marcaine 0.5%/Epinephrine 1:200,000) Confirm Administered Dose 50 ml .ROUTE .[facility]-MED ONE Stop: 10/29/16 06:30 Last Admin: 10/29/16 10:07 Dose: 20 ml Dexamethasone (Dexamethasone) Confirm Administered Dose 4 mg .ROUTE .[facility]-MED ONE Stop: 10/29/16 08:48 Fentanyl (Sublimaze) Confirm Administered Dose 250 mcg .ROUTE .[facility]-MED ONE Stop: 10/29/16 08:49 Fentanyl (Sublimaze) Confirm Administered Dose 250 mcg .ROUTE .[facility]-MED ONE Stop: 10/29/16 09:44 Glycopyrrolate () Confirm Administered Dose 1 mg .ROUTE .[facility] ONE Stop: 10/29/16 08:48 Hydromorphone HCl (Dilaudid) 1 mg IVPUSH ONETIME ONE Stop: 10/25/16 18:05 Last Admin: 10/26/16 08:14 Dose: Not Given Lactated Ringer's (Ringers, Lactated) 1,000 mls @ 999 mls/hr IV BOLUS ONE Stop: 10/25/16 19:05 Last Admin: 10/25/16 18:05 Dose: 999 mls/hr Dextrose/Sodium Chloride (Dextrose 5%-1/2 Ns) 1,000 mls @ 125 mls/hr IV ASDIRECTED [facility] Last Admin: 10/26/16 01:00 Dose: 125 mls/hr Potassium Chloride/Dextrose/Sod Cl (D5 1/2 Ns W/ 20 Meq/L Kcl) 1,000 mls [facility] Last Admin: 10/26/16 16:13 Dose: 100 mls/hr Potassium Chloride/Dextrose/Sod Cl (D5 1/2 Ns W/ 20 Meq/L Kcl) Confirm Administered Dose 1,000 mls @ as directed .ROUTE .[facility] ONE Stop: 10/26/16 06:46 Last Admin: 10/26/16 06:50 Dose: 100 ml Potassium Chloride/Dextrose/Sod Cl (D5 1/2 Ns W/ 20 Meq/L Kcl) 1,000 mls @ 25 [facility]ls[facility] Last Admin: 10/28/16 15:59 Dose: 25 mls/hr Cefazolin Sodium/Dextrose 2 gm (/ Premix) 50 mls @ 100 mls/hr IV ONETIME ONE Stop: 10/29/16 08:29 Last Admin: 10/29/16 08:26 Dose: 100 mls/hr Lactated Ringer's (Ringers, Lactated) Confirm Administered Dose 1,000 mls @ as directed .ROUTE .STK-MED ONE Stop: 10/29/16 10:36 Labetalol HCl (Normodyne) Confirm Administered Dose 20 mg .ROUTE .STK-MED ONE Stop: 10/25/16 20:17 Last Admin: 10/25/16 23:30 Dose: Not Given Neostigmine Methylsulfate (Neostigmine) Confirm Administered Dose 5 mg .ROUTE .STK-MED ONE Stop: 10/29/16 08:48 Nitroglycerin (Nitro-Bid 2%) 1 gm TOP DAILY [facility] Last Admin: 10/27/16 08:11 Dose: 1 gm Ondansetron HCl (Zofran) Confirm Administered Dose 4 mg .ROUTE .STK-MED ONE Stop: 10/29/16 08:48 Phytonadione (Aquamephyton) 5 mg IM ONETIME ONE Stop: 10/27/16 10:49 Last Admin: 10/27/16 11:57 Dose: 5 mg Propofol (Diprivan 20 Ml) Confirm Administered Dose 200 mg .ROUTE .STK-MED ONE Stop: 10/25/16 18:40 Propofol (Diprivan 20 Ml) Confirm Administered Dose 200 mg .ROUTE .STK-MED ONE Stop: 10/29/16 08:48 Rocuronium [place] (Zemuron) Confirm Administered Dose 50 mg .ROUTE .STK-MED ONE Stop: 10/29/16 08:48 Rocuronium [place] (Zemuron) Confirm Administered Dose 50 mg .ROUTE .STK-MED ONE Stop: 10/29/16 09:38 - Exam Wound/Incisions: healing well, no drainage Quality Assessment: DVT prophylaxis General: alert, oriented Lungs: Clear to auscultation, Normal respiratory effort Cardiovascular: Regular Rate, Regular Rhythm Abdomen: bowel sounds present, soft, no tenderness, no distension Extremities: no edema Skin: warm, dry, intact Neurological: no new focal deficit Psy/Mental Status: alert, normal affect, normal mood - Problem List & Annotations (1) Hemothorax on left SNOMED Code(s): 61063554 Code(s): J94.2 - HEMOTHORAX Status: Acute Current Visit: Yes - Problem List Review Problem List Initiated/Reviewed/Updated: Yes - My Orders Last 24 Hours: Active Orders 24 hr Category Date Time Status Communication Order [RC] ASDIRECTED Care 11/01/16 10:09 Active Dressing Change [Wound Care] [RC] DAILY Care 11/01/16 10:00 Active CXR [Chest 1V Frontal] [CR] DAILY Exams 11/02/16 05:00 Taken CXR [Chest 1V Frontal] [CR] DAILY Exams 11/03/16 05:00 Ordered CXR [Chest 1V Frontal] [CR] DAILY Exams 11/04/16 05:00 Ordered CXR [Chest 1V Frontal] [CR] DAILY Exams 11/05/16 05:00 Ordered CBC W/O DIFF,HEMOGRAM [HEME] DAILY Lab 11/03/16 05:11 Ordered CBC W/O DIFF,HEMOGRAM [HEME] DAILY Lab 11/04/16 05:11 Ordered CBC W/O DIFF,HEMOGRAM [HEME] DAILY Lab 11/05/16 05:11 Ordered CBC W/O DIFF,HEMOGRAM [HEME] DAILY Lab 11/06/16 05:11 Ordered Medication Orders Hydrocodone Bitart/Acetaminophen ([place] 325-5 Mg) 1 - 2 tab PO Q4H PRN PRN Reason: Pain Last Admin: 10/31/16 21:00 Dose: 2 tab Admin: 10/30/16 08:16 Dose: 2 tab Admin: 10/29/16 20:32 Dose: 2 tab Admin: 10/29/16 13:12 Dose: 2 tab Admin: 10/29/16 05:22 Dose: 2 tab Admin: 10/29/16 00:58 Dose: 2 tab Admin: 10/28/16 21:14 Dose: 2 tab Admin: 10/28/16 15:39 Dose: 2 tab Admin: 10/28/16 11:06 Dose: 2 tab Citalopram Hydrobromide (Celexa) 40 mg PO DAILY [facility] Last Admin: 11/01/16 08:25 Dose: 40 mg Admin: 10/31/16 08:24 Dose: 40 mg Admin: 10/30/16 08:12 Dose: 40 mg Admin: 10/29/16 12:13 Dose: 40 mg Admin: 10/28/16 08:01 Dose: 40 mg Admin: 10/27/16 08:10 Dose: 40 mg Admin: 10/26/16 08:37 Dose: 40 mg Clonidine HCl (Catapres) 0.1 mg PO BID [facility] Last Admin: 11/01/16 21:27 Dose: 0.1 mg Admin: 11/01/16 08:24 Dose: 0.1 mg Admin: 10/31/16 21:04 Dose: 0.1 mg Admin: 10/31/16 08:25 Dose: 0.1 mg Admin: 10/30/16 21:04 Dose: 0.1 mg Admin: 10/30/16 08:11 Dose: 0.1 mg Admin: 10/29/16 20:32 Dose: 0.1 mg Admin: 10/29/16 12:13 Dose: 0.1 mg Admin: 10/28/16 21:14 Dose: 0.1 mg Admin: 10/28/16 08:00 Dose: 0.1 mg Admin: 10/27/16 20:58 Dose: 0.1 mg Admin: 10/27/16 10:42 Dose: 0.1 mg Docusate Sodium (Colace) 100 mg PO BID [facility] Last Admin: 11/01/16 21:27 Dose: 100 mg Admin: 11/01/16 08:25 Dose: 100 mg Admin: 10/31/16 21:04 Dose: 100 mg Admin: 10/31/16 08:25 Dose: 100 mg Admin: 10/30/16 21:04 Dose: 100 mg Admin: 10/30/16 08:10 Dose: 100 mg Admin: 10/29/16 20:32 Dose: 100 mg Admin: 10/29/16 12:14 Dose: 100 mg Admin: 10/28/16 21:14 Dose: 100 mg Admin: 10/28/16 08:00 Dose: 100 mg Admin: 10/27/16 20:59 Dose: 100 mg Admin: 10/27/16 08:10 Dose: 100 mg Admin: 10/26/16 20:48 Dose: 100 mg Admin: 10/26/16 08:37 Dose: 100 mg Fentanyl (Sublimaze) 50 mcg IVPUSH Q1H PRN PRN Reason: Pain (severe 7-10) Last Admin: 10/30/16 03:51 Dose: 50 mcg Admin: 10/30/16 00:18 Dose: 50 mcg Admin: 10/29/16 19:13 Dose: 50 mcg Admin: 10/29/16 16:01 Dose: 50 mcg Admin: 10/28/16 01:59 Dose: 50 mcg Admin: 10/27/16 19:51 Dose: 50 mcg Admin: 10/27/16 12:04 Dose: 50 mcg Admin: 10/27/16 10:03 Dose: 50 mcg Admin: 10/27/16 08:11 Dose: 50 mcg Admin: 10/27/16 02:55 Dose: 50 mcg Admin: 10/26/16 22:14 Dose: 50 mcg Admin: 10/26/16 20:53 Dose: 50 mcg Admin: 10/26/16 15:03 Dose: 50 mcg Admin: 10/26/16 08:38 Dose: 50 mcg Admin: 10/26/16 04:50 Dose: 50 mcg Admin: 10/26/16 03:26 Dose: 50 mcg Admin: 10/25/16 22:37 Dose: 50 mcg Ferrous Sulfate (Ferrous Sulfate) 325 mg PO BIDMEALS [facility] Admin: 11/01/16 17:56 Dose: 325 mg Admin: 11/01/16 08:24 Dose: 325 mg Admin: 10/31/16 18:23 Dose: 325 mg Admin: 10/31/16 08:25 Dose: 325 mg Admin: 10/30/16 17:16 Dose: 325 mg Admin: 10/30/16 08:10 Dose: 325 mg Admin: 10/29/16 16:46 Dose: 325 mg Admin: 10/29/16 12:13 Dose: 325 mg Admin: 10/28/16 16:36 Dose: 325 mg Admin: 10/28/16 08:00 Dose: 325 mg Admin: 10/27/16 16:31 Dose: 325 mg Potassium Chloride/Dextrose/Sod Cl (D5 1/2 Ns W/ 20 Meq/L Kcl) 1,000 mls @ 75 mls/hr IV ASDIRECTED [facility] Last Admin: 11/02/16 00:37 Dose: 75 mls/hr Infusion: 11/02/16 00:31 Dose: 75 mls/hr Admin: 11/01/16 11:11 Dose: 75 mls/hr Infusion: 11/01/16 11:08 Dose: 75 mls/hr Admin: 10/31/16 21:48 Dose: 75 mls/hr Infusion: 10/31/16 21:42 Dose: 75 mls/hr Admin: 10/31/16 08:22 Dose: 75 mls/hr Infusion: 10/31/16 07:58 Dose: 75 mls/hr Admin: 10/30/16 18:38 Dose: 75 mls/hr Infusion: 10/30/16 17:12 Dose: 75 mls/hr Admin: 10/30/16 03:52 Dose: 75 mls/hr Infusion: 10/30/16 03:52 Dose: 75 mls/hr Admin: 10/29/16 15:56 Dose: 75 mls/hr Labetalol HCl (Normodyne) 0 mg IVPUSH Q1H PRN; Protocol PRN Reason: Hypertension Last Admin: 10/29/16 13:34 Dose: 15 mg Admin: 10/27/16 18:01 Dose: 15 mg Admin: 10/26/16 16:26 Dose: 15 mg Admin: 10/25/16 20:14 Dose: 10 mg Levetiracetam (Keppra) 500 mg PO BID [facility] Last Admin: 11/01/16 21:27 Dose: 500 mg Admin: 11/01/16 08:25 Dose: 500 mg Admin: 10/31/16 21:03 Dose: 500 mg Admin: 10/31/16 08:25 Dose: 500 mg Admin: 10/30/16 21:05 Dose: 500 mg Admin: 10/30/16 08:12 Dose: 500 mg Admin: 10/29/16 20:32 Dose: 500 mg Admin: 10/29/16 12:14 Dose: 500 mg Admin: 10/28/16 21:15 Dose: 500 mg Admin: 10/28/16 08:01 Dose: 500 mg Admin: 10/27/16 20:59 Dose: 500 mg Admin: 10/27/16 08:11 Dose: 500 mg Admin: 10/26/16 20:48 Dose: 500 mg Admin: 10/26/16 08:37 Dose: 500 mg Admin: 10/25/16 22:20 Dose: 500 mg Magnesium Hydroxide (Milk Of Magnesia) 30 ml PO BID PRN PRN Reason: Constipation Last Admin: 10/31/16 10:02 Dose: 30 ml Ondansetron HCl (Zofran) 4 mg IVPUSH Q6H PRN PRN Reason: Nausea/Vomiting Sodium Chloride (Saline Flush) 10 ml FLUSH ASDIRECTED PRN PRN Reason: Keep Vein Open Last Admin: 10/25/16 18:31 Dose: 10 ml - Assessment Assessment (Free Text/Narrative):: Small pleural effusion. - Plan Plan (Free Text/Narrative):: Leave chest tubes in for one more day.
[2016-11-02] MEDS: Ferrous Sulfate 325 MG Tab PO SCH ×2 (07:37→17:00)
[2016-11-02] MEDS: levETIRAcetam 250 MG Tab PO SCH ×3 (07:37→20:52)
[2016-11-02] MEDS: cloNIDine 0.1 MG Tab PO SCH ×3 (07:37→20:52)
[2016-11-02] MEDS: Docusate Sodium 100 MG Cap PO SCH ×3 (07:38→20:52)
[2016-11-02] MEDS: Citalopram 20 MG Tab PO SCH ×2 (07:38→08:22)
--- NOTE | 2016-11-02 09:41 | CR ---
Chest 1V Frontal HISTORY: Chest tube placement. COMPARISON: 11/01/2016. FINDINGS: 2 left-sided chest tubes at the left lung base. Tiny left apical pneumothorax. Left-sided rib fractures. No new infiltrates. Right lung is clear.
[2016-11-03 07:49] VITALS: BP 117/70
[2016-11-03] MEDS: Ferrous Sulfate 325 MG Tab PO SCH (08:10)
[2016-11-03] MEDS: cloNIDine 0.1 MG Tab PO SCH (08:11)
[2016-11-03] MEDS: Citalopram 20 MG Tab PO SCH (08:11)
[2016-11-03] MEDS: Docusate Sodium 100 MG Cap PO SCH (08:11)
[2016-11-03] MEDS: levETIRAcetam 250 MG Tab PO SCH (08:11)
[2016-11-03] MEDS ORDERED: Bacitracin Oint 1 GM U/D Packet TOP ONE (08:57)
--- NOTE | 2016-11-03 09:20 | CR ---
Chest 1V Frontal HISTORY: Chest tubes COMPARISON: 11/02/2016 FINDINGS: 2 chest tubes in the left hemithorax at the lung base. There does remain some opacity obsc uring the medial left hemidiaphragm compatible with atelectasis or infiltrate. Left-sided rib fractu res. Tiny left apical pneumothorax similar to prior study, no new infiltrates.
--- NOTE | 2016-11-03 09:44 | PCM.SURGPN ---
- General Info Date of Service: 11/03/16 POD#: 5 Functional Status: Reports: pain controlled, ambulating, urinating, incentive spirometry - Review of Systems General: Reports: No Symptoms HEENT: Reports: no symptoms Pulmonary: Reports: no symptoms Cardiovascular: Reports: No Symptoms Gastrointestinal: Reports: No symptoms Genitourinary: Reports: no symptoms Musculoskeletal: Reports: no symptoms Skin: Reports: no symptoms Neurological: Reports: No Symptoms Psychiatric: Reports: no symptoms - Patient Data Vitals - most recent: Last Vital Signs Temp 98.4 F 11/03/16 07:15 Pulse 72 11/03/16 07:15 Resp 20 11/03/16 07:15 BP 117/70 11/03/16 08:11 Pulse Ox 92 L 11/03/16 08:16 Weight - most recent: 146 lb 9.718 oz I&O - last 24 hours: Intake & Output 11/02/16 11/03/16 11/03/16 22:59 06:59 14:59 Intake Total 300 720 Output Total 900 1320 275 Balance -600 -1320 445 Lab Results last 24 hrs: Laboratory Results - last 24 hr 11/03/16 Range/Units 05:15 WBC 10.3 (4.5-11.0) K/uL RBC 3.66 L (4.30-5.90) M/uL Hgb 11.4 L (12.0-15.0) g/dL Hct 34.7 L (40.0-54.0) % MCV 95 (80-98) fL MCH 31 (27-31) pg MCHC 33 (32-36) % Plt Count 475 H (150-400) K/uL Med Orders - Current: Current Medications Hydrocodone Bitart/Acetaminophen ([place] 325-5 Mg) 1 - 2 tab PO Q4H PRN PRN Reason: Pain Last Admin: 10/31/16 21:00 Dose: 2 tab Citalopram Hydrobromide (Celexa) 40 mg PO DAILY [facility] Last Admin: 11/03/16 08:11 Dose: 40 mg Clonidine HCl (Catapres) 0.1 mg PO BID [facility] Last Admin: 11/03/16 08:11 Dose: 0.1 mg Docusate Sodium (Colace) 100 mg PO BID [facility] Last Admin: 11/03/16 08:11 Dose: 100 mg Fentanyl (Sublimaze) 50 mcg IVPUSH Q1H PRN PRN Reason: Pain (severe 7-10) Last Admin: 10/30/16 03:51 Dose: 50 mcg Ferrous Sulfate (Ferrous Sulfate) 325 mg PO BIDMEALS [facility] Last Admin: 11/03/16 08:10 Dose: 325 mg Labetalol HCl (Normodyne) 0 mg IVPUSH Q1H PRN; Protocol PRN Reason: Hypertension Last Admin: 10/29/16 13:34 Dose: 15 mg Levetiracetam (Keppra) 500 mg PO BID [facility] Last Admin: 11/03/16 08:11 Dose: 500 mg Magnesium Hydroxide (Milk Of Magnesia) 30 ml PO BID PRN PRN Reason: Constipation Last Admin: 10/31/16 10:02 Dose: 30 ml Ondansetron HCl (Zofran) 4 mg IVPUSH Q6H PRN PRN Reason: Nausea/Vomiting Sodium Chloride (Saline Flush) 10 ml FLUSH ASDIRECTED PRN PRN Reason: Keep Vein Open Last Admin: 10/25/16 18:31 Dose: 10 ml Discontinued Medications Bacitracin (Bacitracin Oint 1 Gm) 2 dose TOP ONETIME ONE Stop: 11/03/16 08:58 Bisacodyl (Dulcolax) 10 mg PO ONETIME ONE Stop: 10/31/16 06:35 Last Admin: 10/31/16 08:24 Dose: 10 mg Bisacodyl (Dulcolax) 10 mg RECTAL ONETIME ONE Stop: 11/01/16 10:31 Last Admin: 11/01/16 11:11 Dose: Not Given Bupivacaine HCl/Epinephrine Bitart ([place] 0.5%/Epinephrine 1:200,000) Confirm Administered Dose 50 ml .ROUTE .STK-MED ONE Stop: 10/25/16 19:01 Last Admin: 10/25/16 20:03 Dose: 10 ml Bupivacaine HCl/Epinephrine Bitart ([place] 0.5%/Epinephrine 1:200,000) Confirm Administered Dose 50 ml .ROUTE .STK-MED ONE Stop: 10/29/16 06:30 Last Admin: 10/29/16 10:07 Dose: 20 ml Dexamethasone (Dexamethasone) Confirm Administered Dose 4 mg .ROUTE .STK-MED ONE Stop: 10/29/16 08:48 Fentanyl (Sublimaze) Confirm Administered Dose 250 mcg .ROUTE .[facility]-MED ONE Stop: 10/29/16 08:49 Fentanyl (Sublimaze) Confirm Administered Dose 250 mcg .ROUTE .[facility]-MED ONE Stop: 10/29/16 09:44 Glycopyrrolate () Confirm Administered Dose 1 mg .ROUTE .[facility]-MED ONE Stop: 10/29/16 08:48 Hydromorphone HCl (Dilaudid) 1 mg IVPUSH ONETIME ONE Stop: 10/25/16 18:05 Last Admin: 10/26/16 08:14 Dose: Not Given Lactated Ringer's (Ringers, Lactated) 1,000 mls @ 999 mls/hr IV BOLUS ONE Stop: 10/25/16 19:05 Last Admin: 10/25/16 18:05 Dose: 999 mls/hr Dextrose/Sodium Chloride (Dextrose 5%-1/2 Ns) 1,000 mls @ 125 [facility] Admin: 10/26/16 01:00 Dose: 125 mls/hr Potassium Chloride/Dextrose/Sod Cl (D5 1/2 Ns W/ 20 Meq/L Kcl) 1,000 mls @ 100 mls/hr IV ASDIRECTED [facility] Last Admin: 10/26/16 16:13 Dose: 100 mls/hr Potassium Chloride/Dextrose/Sod Cl (D5 1/2 Ns W/ 20 Meq/L Kcl) Confirm Administered Dose 1,000 mls @ as directed .ROUTE .[facility] ONE Stop: 10/26/16 06:46 Last Admin: 10/26/16 06:50 Dose: 100 ml Potassium Chloride/Dextrose/Sod Cl (D5 1/2 Ns W/ 20 Meq/L Kcl) 1,000 mls @ 25 mls/hr IV ASDIRECTED [facility] Last Admin: 10/28/16 15:59 Dose: 25 mls/hr Cefazolin Sodium/Dextrose 2 gm (/ Premix) 50 mls @ 100 mls/hr IV ONETIME ONE Stop: 10/29/16 08:29 Last Admin: 10/29/16 08:26 Dose: 100 mls/hr Lactated Ringer's (Ringers, Lactated) Confirm Administered Dose 1,000 mls @ as directed .ROUTE .K-MED ONE Stop: 10/29/16 10:36 Potassium Chloride/Dextrose/Sod Cl (D5 1/2 Ns W/ 20 Meq/L Kcl) 1,000 mls @ 75 mls/hr IV ASDIRECTED [facility] Last Admin: 11/02/16 00:37 Dose: 75 mls/hr Labetalol HCl (Normodyne) Confirm Administered Dose 20 mg .ROUTE .STK-MED ONE Stop: 10/25/16 20:17 Last Admin: 10/25/16 23:30 Dose: Not Given Neostigmine Methylsulfate (Neostigmine) Confirm Administered Dose 5 mg .ROUTE .STK-MED ONE Stop: 10/29/16 08:48 Nitroglycerin (Nitro-Bid 2%) 1 gm TOP DAILY [facility] Last Admin: 10/27/16 08:11 Dose: 1 gm Ondansetron HCl (Zofran) Confirm Administered Dose 4 mg .ROUTE .STK-MED ONE Stop: 10/29/16 08:48 Phytonadione (Aquamephyton) 5 mg IM ONETIME ONE Stop: 10/27/16 10:49 Last Admin: 10/27/16 11:57 Dose: 5 mg Propofol (Diprivan 20 Ml) Confirm Administered Dose 200 mg .ROUTE .STK-MED ONE Stop: 10/25/16 18:40 Propofol (Diprivan 20 Ml) Confirm Administered Dose 200 mg .ROUTE .STK-MED ONE Stop: 10/29/16 08:48 Rocuronium [place] (Zemuron) Confirm Administered Dose 50 mg .ROUTE .STK-MED ONE Stop: 10/29/16 08:48 Rocuronium [place] (Zemuron) Confirm Administered Dose 50 mg .ROUTE .STK-MED ONE Stop: 10/29/16 09:38 - Exam Wound/Incisions: healing well, no drainage (Chest tube about 20 ml's per day. ) Quality Assessment: urine catheter General: alert, oriented, cooperative Lungs: Clear to auscultation, Normal respiratory effort Cardiovascular: Regular Rate, Regular Rhythm Abdomen: bowel sounds present, soft, no tenderness, no distension Extremities: no edema Skin: warm, dry, intact Neurological: no new focal deficit Psy/Mental Status: alert, normal affect - Problem List & Annotations (1) Hemothorax on left SNOMED Code(s): 08300010 Code(s): J94.2 - HEMOTHORAX Status: Acute Current Visit: Yes - Problem List Review Problem List Initiated/Reviewed/Updated: Yes - My Orders Last 24 Hours: Active Orders 24 hr Category Date Time Status CXR [Chest 1V Frontal] [CR] DAILY Exams 11/04/16 05:00 Ordered CXR [Chest 1V Frontal] [CR] DAILY Exams 11/05/16 05:00 Ordered CXR [Chest 1V Frontal] [CR] Routine Exams 11/03/16 09:29 Ordered CBC W/O DIFF,HEMOGRAM [HEME] DAILY Lab 11/04/16 05:11 Ordered CBC W/O DIFF,HEMOGRAM [HEME] DAILY Lab 11/05/16 05:11 Ordered CBC W/O DIFF,HEMOGRAM [HEME] DAILY Lab 11/06/16 05:11 Ordered Convert IV to Peripheral Lock [Convert IV to Saline Oth 11/02/16 10:02 Ordered Lock] [OM.PC] Routine Medication Orders Hydrocodone Bitart/Acetaminophen ([place] 325-5 Mg) 1 - 2 tab PO Q4H PRN PRN Reason: Pain Last Admin: 10/31/16 21:00 Dose: 2 tab Admin: 10/30/16 08:16 Dose: 2 tab Admin: 10/29/16 20:32 Dose: 2 tab Admin: 10/29/16 13:12 Dose: 2 tab Admin: 10/29/16 05:22 Dose: 2 tab Admin: 10/29/16 00:58 Dose: 2 tab Admin: 10/28/16 21:14 Dose: 2 tab Admin: 10/28/16 15:39 Dose: 2 tab Admin: 10/28/16 11:06 Dose: 2 tab Citalopram Hydrobromide (Celexa) 40 mg PO DAILY [facility] Last Admin: 11/03/16 08:11 Dose: 40 mg Admin: 11/02/16 08:22 Dose: Not Given Admin: 11/02/16 07:38 Dose: 40 mg Admin: 11/01/16 08:25 Dose: 40 mg Admin: 10/31/16 08:24 Dose: 40 mg Admin: 10/30/16 08:12 Dose: 40 mg Admin: 10/29/16 12:13 Dose: 40 mg Admin: 10/28/16 08:01 Dose: 40 mg Admin: 10/27/16 08:10 Dose: 40 mg Admin: 10/26/16 08:37 Dose: 40 mg Clonidine HCl (Catapres) 0.1 mg PO BID [facility] Last Admin: 11/03/16 08:11 Dose: 0.1 mg Admin: 11/02/16 20:52 Dose: 0.1 mg Admin: 11/02/16 08:22 Dose: Not Given Admin: 11/02/16 07:37 Dose: 0.1 mg Admin: 11/01/16 21:27 Dose: 0.1 mg Admin: 11/01/16 08:24 Dose: 0.1 mg Admin: 10/31/16 21:04 Dose: 0.1 mg Admin: 10/31/16 08:25 Dose: 0.1 mg Admin: 10/30/16 21:04 Dose: 0.1 mg Admin: 10/30/16 08:11 Dose: 0.1 mg Admin: 10/29/16 20:32 Dose: 0.1 mg Admin: 10/29/16 12:13 Dose: 0.1 mg Admin: 10/28/16 21:14 Dose: 0.1 mg Admin: 10/28/16 08:00 Dose: 0.1 mg Admin: 10/27/16 20:58 Dose: 0.1 mg Admin: 10/27/16 10:42 Dose: 0.1 mg Docusate Sodium (Colace) 100 mg PO BID [facility] Last Admin: 11/03/16 08:11 Dose: 100 mg Admin: 11/02/16 20:52 Dose: 100 mg Admin: 11/02/16 08:22 Dose: Not Given Admin: 11/02/16 07:38 Dose: 100 mg Admin: 11/01/16 21:27 Dose: 100 mg Admin: 11/01/16 08:25 Dose: 100 mg Admin: 10/31/16 21:04 Dose: 100 mg Admin: 10/31/16 08:25 Dose: 100 mg Admin: 10/30/16 21:04 Dose: 100 mg Admin: 10/30/16 08:10 Dose: 100 mg Admin: 10/29/16 20:32 Dose: 100 mg Admin: 10/29/16 12:14 Dose: 100 mg Admin: 10/28/16 21:14 Dose: 100 mg Admin: 10/28/16 08:00 Dose: 100 mg Admin: 10/27/16 20:59 Dose: 100 mg Admin: 10/27/16 08:10 Dose: 100 mg Admin: 10/26/16 20:48 Dose: 100 mg Admin: 10/26/16 08:37 Dose: 100 mg Fentanyl (Sublimaze) 50 mcg IVPUSH Q1H PRN PRN Reason: Pain (severe 7-10) Last Admin: 10/30/16 03:51 Dose: 50 mcg Admin: 10/30/16 00:18 Dose: 50 mcg Admin: 10/29/16 19:13 Dose: 50 mcg Admin: 10/29/16 16:01 Dose: 50 mcg Admin: 10/28/16 01:59 Dose: 50 mcg Admin: 10/27/16 19:51 Dose: 50 mcg Admin: 10/27/16 12:04 Dose: 50 mcg Admin: 10/27/16 10:03 Dose: 50 mcg Admin: 10/27/16 08:11 Dose: 50 mcg Admin: 10/27/16 02:55 Dose: 50 mcg Admin: 10/26/16 22:14 Dose: 50 mcg Admin: 10/26/16 20:53 Dose: 50 mcg Admin: 10/26/16 15:03 Dose: 50 mcg Admin: 10/26/16 08:38 Dose: 50 mcg Admin: 10/26/16 04:50 Dose: 50 mcg Admin: 10/26/16 03:26 Dose: 50 mcg Admin: 10/25/16 22:37 Dose: 50 mcg Ferrous Sulfate (Ferrous Sulfate) 325 mg PO BIDMEALS [facility] Admin: 11/03/16 08:10 Dose: 325 mg Admin: 11/02/16 17:00 Dose: 325 mg Admin: 11/02/16 07:37 Dose: 325 mg Admin: 11/01/16 17:56 Dose: 325 mg Admin: 11/01/16 08:24 Dose: 325 mg Admin: 10/31/16 18:23 Dose: 325 mg Admin: 10/31/16 08:25 Dose: 325 mg Admin: 10/30/16 17:16 Dose: 325 mg Admin: 10/30/16 08:10 Dose: 325 mg Admin: 10/29/16 16:46 Dose: 325 mg Admin: 10/29/16 12:13 Dose: 325 mg Admin: 10/28/16 16:36 Dose: 325 mg Admin: 10/28/16 08:00 Dose: 325 mg Admin: 10/27/16 16:31 Dose: 325 mg Labetalol HCl (Normodyne) 0 mg IVPUSH Q1H PRN; Protocol PRN Reason: Hypertension Last Admin: 10/29/16 13:34 Dose: 15 mg Admin: 10/27/16 18:01 Dose: 15 mg Admin: 10/26/16 16:26 Dose: 15 mg Admin: 10/25/16 20:14 Dose: 10 mg Levetiracetam (Keppra) 500 mg PO BID [facility] Last Admin: 11/03/16 08:11 Dose: 500 mg Admin: 11/02/16 20:52 Dose: 500 mg Admin: 11/02/16 08:22 Dose: Not Given Admin: 11/02/16 07:37 Dose: 500 mg Admin: 11/01/16 21:27 Dose: 500 mg Admin: 11/01/16 08:25 Dose: 500 mg Admin: 10/31/16 21:03 Dose: 500 mg Admin: 10/31/16 08:25 Dose: 500 mg Admin: 10/30/16 21:05 Dose: 500 mg Admin: 10/30/16 08:12 Dose: 500 mg Admin: 10/29/16 20:32 Dose: 500 mg Admin: 10/29/16 12:14 Dose: 500 mg Admin: 10/28/16 21:15 Dose: 500 mg Admin: 10/28/16 08:01 Dose: 500 mg Admin: 10/27/16 20:59 Dose: 500 mg Admin: 10/27/16 08:11 Dose: 500 mg Admin: 10/26/16 20:48 Dose: 500 mg Admin: 10/26/16 08:37 Dose: 500 mg Admin: 10/25/16 22:20 Dose: 500 mg Magnesium Hydroxide (Milk Of Magnesia) 30 ml PO BID PRN PRN Reason: Constipation Last Admin: 10/31/16 10:02 Dose: 30 ml Ondansetron HCl (Zofran) 4 mg IVPUSH Q6H PRN PRN Reason: Nausea/Vomiting Sodium Chloride (Saline Flush) 10 ml FLUSH ASDIRECTED PRN PRN Reason: Keep Vein Open Last Admin: 10/25/16 18:31 Dose: 10 ml - Assessment Assessment (Free Text/Narrative):: Chest tube with no air leak, fluctuates, still some fluid in his left base. - Plan Plan (Free Text/Narrative):: Remove chest tubes.
--- NOTE | 2016-11-03 10:05 | PCM.DCSUM1 ---
Discharge Summary - Hospital Course Free Text/Narrative:: Almost two weeks ago he fell, suffering a left flail chest. He was referred to [place] where a chest tube was placed. He did well so his chest tube was removed on October 25, 2016 and he was discharged after post removal CXR appeared well. Enroute home he coughed with blood coming out of his chest tube dressing. He presented to our ER with a hemothorax seen. A 36 FR chest tube was placed. The output never reached levels needing surgery, but it did not clear his hemothorax. On October 29, 2016 he was taken to the OR for thoroscopic evacuation of the hematoma. Two chest tubes were left in place. His output slowly decrease so the tubes were removed today. Follow up CXR looks well. He is discharged to home at this time. - Discharge Data Discharge Date: 11/03/16 Discharge Disposition: Home, Self-Care 01 Condition: Stable - Discharge Diagnosis/Problem(s) (1) Hemothorax on left SNOMED Code(s): 46871018 ICD Code: J94.2 - HEMOTHORAX Status: Acute Current Visit: Yes - Patient Summary/Data Operative Procedure(s) Performed: See above narrative. Hospital Course: See above narrative. - Patient Instructions Diet: Usual Diet as Tolerated Activity, Other: No atmospheric pressure changes (flying, mountains, diving) for one month. Driving: May Drive Today Showering/Bathing: Shower in AM Notify Provider of: Fever, Increased Pain, Swelling and Redness, Drainage, Nausea and/or Vomiting - Discharge Plan Prescriptions/Med Rec: cloNIDine [Catapres] 0.1 mg PO BID #60 tablet Home Medications: Home Meds Citalopram Hydrobromide [Citalopram HBr] 40 mg PO DAILY 05/24/15 [History] levETIRAcetam [Levetiracetam] 500 mg PO BID 05/24/15 [History] cloNIDine [Catapres] 0.1 mg PO BID #60 tablet 11/03/16 [Rx] Forms: ED Department Discharge Referrals: Aurelia Arrington PA [Primary Care Provider] - Glenroy Cervantes MD [Physician] - (See me in [facility] in three days (for CXR) and in one week (for suture/skin staple removal).) - Discharge Summary/Plan Comment DC Time >30 min.: Yes Discharge Summary/Plan Comment: See above narrative. - Patient Data Vitals - Most Recent: Last Vital Signs Temp 98.4 F 11/03/16 07:15 Pulse 72 11/03/16 07:15 Resp 20 11/03/16 07:15 BP 117/70 11/03/16 08:11 Pulse Ox 92 L 11/03/16 08:16 Weight - Most Recent: 146 lb 9.718 oz I&O - Last 24 hours: Intake & Output 11/02/16 11/03/16 11/03/16 22:59 06:59 14:59 Intake Total 300 720 Output Total 900 1320 275 Balance -600 -1320 445 Lab Results - Last 24 hrs: Laboratory Results - last 24 hr 11/03/16 Range/Units 05:15 WBC 10.3 (4.5-11.0) K/uL RBC 3.66 L (4.30-5.90) M/uL Hgb 11.4 L (12.0-15.0) g/dL Hct 34.7 L (40.0-54.0) % MCV 95 (80-98) fL MCH 31 (27-31) pg MCHC 33 (32-36) % Plt Count 475 H (150-400) K/uL Med Orders - Current: Current Medications Hydrocodone Bitart/Acetaminophen ([place] 325-5 Mg) 1 - 2 tab PO Q4H PRN PRN Reason: Pain Last Admin: 10/31/16 21:00 Dose: 2 tab Citalopram Hydrobromide (Celexa) 40 mg PO DAILY [facility] Last Admin: 11/03/16 08:11 Dose: 40 mg Clonidine HCl (Catapres) 0.1 mg PO BID [facility] Last Admin: 11/03/16 08:11 Dose: 0.1 mg Docusate Sodium (Colace) 100 mg PO BID [facility] Last Admin: 11/03/16 08:11 Dose: 100 mg Fentanyl (Sublimaze) 50 mcg IVPUSH Q1H PRN PRN Reason: Pain (severe 7-10) Last Admin: 10/30/16 03:51 Dose: 50 mcg Ferrous Sulfate (Ferrous Sulfate) 325 mg PO BIDMEALS [facility] Last Admin: 11/03/16 08:10 Dose: 325 mg Labetalol HCl (Normodyne) 0 mg IVPUSH Q1H PRN; Protocol PRN Reason: Hypertension Last Admin: 10/29/16 13:34 Dose: 15 mg Levetiracetam (Keppra) 500 mg PO BID [facility] Last Admin: 11/03/16 08:11 Dose: 500 mg Magnesium Hydroxide (Milk Of Magnesia) 30 ml PO BID PRN PRN Reason: Constipation Last Admin: 10/31/16 10:02 Dose: 30 ml Ondansetron HCl (Zofran) 4 mg IVPUSH Q6H PRN PRN Reason: Nausea/Vomiting Sodium Chloride (Saline Flush) 10 ml FLUSH ASDIRECTED PRN PRN Reason: Keep Vein Open Last Admin: 10/25/16 18:31 Dose: 10 ml Discontinued Medications Bacitracin (Bacitracin Oint 1 Gm) 2 dose TOP ONETIME ONE Stop: 11/03/16 08:58 Bisacodyl (Dulcolax) 10 mg PO ONETIME ONE Stop: 10/31/16 06:35 Last Admin: 10/31/16 08:24 Dose: 10 mg Bisacodyl (Dulcolax) 10 mg RECTAL ONETIME ONE Stop: 11/01/16 10:31 Last Admin: 11/01/16 11:11 Dose: Not Given Bupivacaine HCl/Epinephrine Bitart ([place] 0.5%/Epinephrine 1:200,000) Confirm Administered Dose 50 ml .ROUTE .STK-MED ONE Stop: 10/25/16 19:01 Last Admin: 10/25/16 20:03 Dose: 10 ml Bupivacaine HCl/Epinephrine Bitart ([place] 0.5%/Epinephrine 1:200,000) Confirm Administered Dose 50 ml .ROUTE .STK-MED ONE Stop: 10/29/16 06:30 Last Admin: 10/29/16 10:07 Dose: 20 ml Dexamethasone (Dexamethasone) Confirm Administered Dose 4 mg .ROUTE .STK-MED ONE Stop: 10/29/16 08:48 Fentanyl (Sublimaze) Confirm Administered Dose 250 mcg .ROUTE .STK-MED ONE Stop: 10/29/16 08:49 Fentanyl (Sublimaze) Confirm Administered Dose 250 mcg .ROUTE .STK-MED ONE Stop: 10/29/16 09:44 Glycopyrrolate () Confirm Administered Dose 1 mg .ROUTE .STK-MED ONE Stop: 10/29/16 08:48 Hydromorphone HCl (Dilaudid) 1 mg IVPUSH ONETIME ONE Stop: 10/25/16 18:05 Last Admin: 10/26/16 08:14 Dose: Not Given Lactated Ringer's (Ringers, Lactated) 1,000 mls @ 999 mls/hr IV BOLUS ONE Stop: 10/25/16 19:05 Last Admin: 10/25/16 18:05 Dose: 999 mls/hr Dextrose/Sodium Chloride (Dextrose 5%-1/2 Ns) 1,000 mls @ 125 mls/hr IV ASDIRECTED [facility] Last Admin: 10/26/16 01:00 Dose: 125 mls/hr Potassium Chloride/Dextrose/Sod Cl (D5 1/2 Ns W/ 20 Meq/L Kcl) 1,000 mls @ 100 mls/hr IV ASDIRECTED [facility] Last Admin: 10/26/16 16:13 Dose: 100 mls/hr Potassium Chloride/Dextrose/Sod Cl (D5 1/2 Ns W/ 20 Meq/L Kcl) Confirm Administered Dose 1,000 mls @ as directed .ROUTE .STK-MED ONE Stop: 10/26/16 06:46 Last Admin: 10/26/16 06:50 Dose: 100 ml Potassium Chloride/Dextrose/Sod Cl (D5 1/2 Ns W/ 20 Meq/L Kcl) 1,000 mls @ 25 mls/hr IV ASDIRECTED [facility] Last Admin: 10/28/16 15:59 Dose: 25 mls/hr Cefazolin Sodium/Dextrose 2 gm (/ Premix) 50 mls @ 100 mls/hr IV ONETIME ONE Stop: 10/29/16 08:29 Last Admin: 10/29/16 08:26 Dose: 100 mls/hr Lactated Ringer's (Ringers, Lactated) Confirm Administered Dose 1,000 mls @ as directed .ROUTE .STK-MED ONE Stop: 10/29/16 10:36 Potassium Chloride/Dextrose/Sod Cl (D5 1/2 Ns W/ 20 Meq/L Kcl) 1,000 mls @ 75 mls/hr IV ASDIRECTED [facility] Last Admin: 11/02/16 00:37 Dose: 75 mls/hr Labetalol HCl (Normodyne) Confirm Administered Dose 20 mg .ROUTE .STK-MED ONE Stop: 10/25/16 20:17 Last Admin: 10/25/16 23:30 Dose: Not Given Neostigmine Methylsulfate (Neostigmine) Confirm Administered Dose 5 mg .ROUTE .STK-MED ONE Stop: 10/29/16 08:48 Nitroglycerin (Nitro-Bid 2%) 1 gm TOP DAILY [facility] Last Admin: 10/27/16 08:11 Dose: 1 gm Ondansetron HCl (Zofran) Confirm Administered Dose 4 mg .ROUTE .STK-MED ONE Stop: 10/29/16 08:48 Phytonadione (Aquamephyton) 5 mg IM ONETIME ONE Stop: 10/27/16 10:49 Last Admin: 10/27/16 11:57 Dose: 5 mg Propofol (Diprivan 20 Ml) Confirm Administered Dose 200 mg .ROUTE .STK-MED ONE Stop: 10/25/16 18:40 Propofol (Diprivan 20 Ml) Confirm Administered Dose 200 mg .ROUTE .STK-MED ONE Stop: 10/29/16 08:48 Rocuronium [place] (Zemuron) Confirm Administered Dose 50 mg .ROUTE .STK-MED ONE Stop: 10/29/16 08:48 Rocuronium [place] (Zem[place]) Confirm Administered Dose 50 mg .ROUTE .STK-MED ONE Stop: 10/29/16 09:38 *Q Meaningful Use (DIS) - VTE *Q VTE Criteria *Q: - Stroke *Q Stroke Criteria *Q: - AMI *Q AMI Criteria *Q:
--- NOTE | 2016-11-03 10:10 | CR ---
Chest 1V Frontal HISTORY: Chest tube removal COMPARISON: Earlier chest x-ray this morning FINDINGS: 2 left-sided chest tubes have been removed. Tiny left apical pneumothorax unchanged. No ne w infiltrates.
--- NOTE | 2016-12-10 09:49 | PCM.SURGPN ---
- General Info Date of Service: 10/31/16 POD#: 2 Post-Op Diagnosis: Traumatic hemothorax, flail chest. Functional Status: Reports: pain controlled, tolerating diet, ambulating (To limit of chest tube. ) - Review of Systems General: Reports: No Symptoms HEENT: Reports: no symptoms Pulmonary: Reports: no symptoms Cardiovascular: Reports: No Symptoms Gastrointestinal: Reports: No symptoms Genitourinary: Reports: no symptoms Musculoskeletal: Reports: no symptoms Skin: Reports: no symptoms Neurological: Reports: No Symptoms Psychiatric: Reports: no symptoms - Patient Data Vitals - most recent: Last Vital Signs Temp 98.4 F 11/03/16 07:15 Pulse 72 11/03/16 07:15 Resp 20 11/03/16 07:15 BP 117/70 11/03/16 08:11 Pulse Ox 92 L 11/03/16 08:16 Weight - most recent: 146 lb 9.718 oz Med Orders - Current: Current Medications Discontinued Medications Hydrocodone Bitart/Acetaminophen ([place] 325-5 Mg) 1 - 2 tab PO Q4H PRN PRN Reason: Pain Last Admin: 10/31/16 21:00 Dose: 2 tab Bacitracin (Bacitracin Oint 1 Gm) 2 dose TOP ONETIME ONE Stop: 11/03/16 08:58 Bisacodyl (Dulcolax) 10 mg PO ONETIME ONE Stop: 10/31/16 06:35 Last Admin: 10/31/16 08:24 Dose: 10 mg Bisacodyl (Dulcolax) 10 mg RECTAL ONETIME ONE Stop: 11/01/16 10:31 Last Admin: 11/01/16 11:11 Dose: Not Given Bupivacaine HCl/Epinephrine Bitart ([place] 0.5%/Epinephrine 1:200,000) Confirm Administered Dose 50 ml .ROUTE .STK-MED ONE Stop: 10/25/16 19:01 Last Admin: 10/25/16 20:03 Dose: 10 ml Bupivacaine HCl/Epinephrine Bitart ([place] 0.5%/Epinephrine 1:200,000) Confirm Administered Dose 50 ml .ROUTE .STK-MED ONE Stop: 10/29/16 06:30 Last Admin: 10/29/16 10:07 Dose: 20 ml Citalopram Hydrobromide (Celexa) 40 mg PO DAILY [place] Last Admin: 11/03/16 08:11 Dose: 40 mg Clonidine HCl (Catapres) 0.1 mg PO BID [facility] Last Admin: 11/03/16 08:11 Dose: 0.1 mg Dexamethasone (Dexamethasone) Confirm Administered Dose 4 mg .ROUTE .STK-MED ONE Stop: 10/29/16 08:48 Docusate Sodium (Colace) 100 mg PO BID [facility] Last Admin: 11/03/16 08:11 Dose: 100 mg Fentanyl (Sublimaze) 50 mcg IVPUSH Q1H PRN PRN Reason: Pain (severe 7-10) Last Admin: 10/30/16 03:51 Dose: 50 mcg Fentanyl (Sublimaze) Confirm Administered Dose 250 mcg .ROUTE .STK-MED ONE Stop: 10/29/16 08:49 Fentanyl (Sublimaze) Confirm Administered Dose 250 mcg .ROUTE .STK-MED ONE Stop: 10/29/16 09:44 [facility]ous [facility] Last Admin: 11/03/16 08:10 Dose: 325 mg Glycopyrrolate () Confirm Administered Dose 1 mg .ROUTE .STK-MED ONE Stop: 10/29/16 08:48 Hydromorphone HCl (Dilaudid) 1 mg IVPUSH ONETIME ONE Stop: 10/25/16 18:05 Last Admin: 10/26/16 08:14 Dose: Not Given Lactated Ringer's (Ringers, Lactated) 1,000 mls @ 999 mls/hr IV BOLUS ONE Stop: 10/25/16 19:05 Last Admin: 10/25/16 18:05 Dose: 999 mls/hr Dextrose/Sodium Chloride (Dextrose 5%-1/2 Ns) 1,000 mls @ 125 mls/hr IV ASDIRECTED [facility] Last Admin: 10/26/16 01:00 Dose: 125 mls/hr Potassium Chloride/Dextrose/Sod Cl (D5 1/2 Ns W/ 20 Meq/L Kcl) 1,000 mls @ 100 mls/hr IV ASDIRECTED [facility] Last Admin: 10/26/16 16:13 Dose: 100 mls/hr Potassium Chloride/Dextrose/Sod Cl (D5 1/2 Ns W/ 20 Meq/L Kcl) Confirm Administered Dose 1,000 mls @ as directed .ROUTE .STK-MED ONE Stop: 10/26/16 06:46 Last Admin: 10/26/16 06:50 Dose: 100 ml Potassium Chloride/Dextrose/Sod Cl (D5 1/2 Ns W/ 20 Meq/L Kcl) 1,000 mls @ 25 mls/hr IV ASDIRECTED [facility] Last Admin: 10/28/16 15:59 Dose: 25 mls/hr Cefazolin Sodium/Dextrose 2 gm (/ Premix) 50 mls @ 100 mls/hr IV ONETIME ONE Stop: 10/29/16 08:29 Last Admin: 10/29/16 08:26 Dose: 100 mls/hr Lactated Ringer's (Ringers, Lactated) Confirm Administered Dose 1,000 mls @ as directed .ROUTE .STK-MED ONE Stop: 10/29/16 10:36 Potassium Chloride/Dextrose/Sod Cl (D5 1/2 Ns W/ 20 Meq/L Kcl) 1,000 mls @ 75 mls/hr IV ASDIRECTED [facility] Last Admin: 11/02/16 00:37 Dose: 75 mls/hr Labetalol HCl (Normodyne) Confirm Administered Dose 20 mg .ROUTE .STK-MED ONE Stop: 10/25/16 20:17 Last Admin: 10/25/16 23:30 Dose: Not Given Labetalol HCl (Normodyne) 0 mg IVPUSH Q1H PRN; Protocol PRN Reason: Hypertension Last Admin: 10/29/16 13:34 Dose: 15 mg Levetiracetam (Keppra) 500 mg PO BID [facility] Last Admin: 11/03/16 08:11 Dose: 500 mg Magnesium Hydroxide (Milk Of Magnesia) 30 ml PO BID PRN PRN Reason: Constipation Last Admin: 10/31/16 10:02 Dose: 30 ml Neostigmine Methylsulfate (Neostigmine) Confirm Administered Dose 5 mg .ROUTE .STK-MED ONE Stop: 10/29/16 08:48 Nitroglycerin (Nitro-Bid 2%) 1 gm TOP DAILY [facility] Last Admin: 10/27/16 08:11 Dose: 1 gm Ondansetron HCl (Zofran) 4 mg IVPUSH Q6H PRN PRN Reason: Nausea/Vomiting Ondansetron HCl (Zofran) Confirm Administered Dose 4 mg .ROUTE .STK-MED ONE Stop: 10/29/16 08:48 Phytonadione (Aquamephyton) 5 mg IM ONETIME ONE Stop: 10/27/16 10:49 Last Admin: 10/27/16 11:57 Dose: 5 mg Propofol (Diprivan 20 Ml) Confirm Administered Dose 200 mg .ROUTE .STK-MED ONE Stop: 10/25/16 18:40 Propofol (Diprivan 20 Ml) Confirm Administered Dose 200 mg .ROUTE .STK-MED ONE Stop: 10/29/16 08:48 Rocuronium [place] (Zemuron) Confirm Administered Dose 50 mg .ROUTE .STK-MED ONE Stop: 10/29/16 08:48 Rocuronium [place] (Zemuron) Confirm Administered Dose 50 mg .ROUTE .STK-MED ONE Stop: 10/29/16 09:38 Sodium Chloride (Saline Flush) 10 ml FLUSH ASDIRECTED PRN PRN Reason: Keep Vein Open Last Admin: 10/25/16 18:31 Dose: 10 ml - Exam Wound/Incisions: healing well, dressing dry and intact, no drainage (Except for chest tube. ) General: alert, oriented, cooperative, no acute distress Lungs: Clear to auscultation, Normal respiratory effort Cardiovascular: Regular Rate, Regular Rhythm Abdomen: bowel sounds present, soft, no tenderness, no distension Extremities: no edema Skin: warm, dry, intact Psy/Mental Status: alert, normal affect, normal mood - Problem List & Annotations (1) Hemothorax on left SNOMED Code(s): 54829288 Code(s): J94.2 - HEMOTHORAX Status: Acute - Problem List Review Problem List Initiated/Reviewed/Updated: Yes - Assessment Assessment (Free Text/Narrative):: Doing well. No air leak. - Plan Plan (Free Text/Narrative):: No change.
== END 2016-11-03 11:55 | disposition home or self-care (01) | DRG 201 ==
LOC: JP.ED 17:45 → JP.SDS 18:39 → UNDOADMIN 18:51 → JP.ICU 18:51 → UNDOADMIN 19:52 → JP.ICU 20:00 → JP.2SS 10-28 13:30 → JP.ICU 10-29 11:55 → JP.2SS 10-30 14:00 → UNDODISIN 11-03 11:55
PROVIDERS: ADMIT Surgery; ATTEND Surgery
PROC: 0W9B00Z Drainage of Left Pleural Cavity with Drainage Device, Open Approach (ICD-10-PCS; principal; 2016-10-25)
PROC: 30230N1 Transfusion of Nonautologous Red Blood Cells into Peripheral Vein, Open Approach (ICD-10-PCS; 2016-10-28)
PROC: 0WCB4ZZ Extirpation of Matter from Left Pleural Cavity, Percutaneous Endoscopic Approach (ICD-10-PCS; 2016-10-29)
DX: S27.1XXA Traumatic hemothorax, initial encounter (principal); D64.9 Anemia, unspecified; S22.5XXD Flail chest, subsequent encounter for fracture with routine healing; F32.9 Major depressive disorder, single episode, unspecified; Z87.891 Personal history of nicotine dependence; X58.XXXA Exposure to other specified factors, initial encounter; R05 Cough; Z72.89 Other problems related to lifestyle; G40.909 Epilepsy, unspecified, not intractable, without status epilepticus; S20.219D Contusion of unspecified front wall of thorax, subsequent encounter; X58.XXXD Exposure to other specified factors, subsequent encounter
CPT/HCPCS: 36415; 71010 ×2; 80053; 85025; 85610; 85730; 86850; 86900; 86901; 86920; 86922; 96360; 99283; 99285; J2704; J7050; J7120; 36430; 80048; 83540; 85018; 85027; 94762; A9270-GY; J0690; J1100; J2405; J3010; J3430; J3480; P9016

== ENCOUNTER 2021-03-04 08:29 | Day surgery (SDC) | payer MEDICARE, BC ==
[~2021-03-04 08:29] MED LIST: Midazolam 1 MG/ML 2 ML SDV ONE; Propofol 200 MG/20 ML SDV ONE; fentaNYL 100 MCG/2 ML SDV ONE
[2021-03-04] MEDS ORDERED: Sodium Chloride 0.9% 1,000 ML IV SCH (09:00)
[2021-03-04] MEDS ORDERED: levETIRAcetam 250 MG Tab PO ONE (10:00)
[2021-03-04 10:56] VITALS: BP 129/87; PULSE 65
--- NOTE | 2021-03-07 11:10 | OR ---
DATE OF PROCEDURE: 03/04/2021 SURGEON: Jaya Whitehead MD PROCEDURE: Colonoscopy. FINDINGS: Diverticulosis, mild, mostly limited to sigmoid colon. COMPLICATIONS: None. EARLY CHILDHOOD SERVICES COORDINATOR: None. PREOPERATIVE DIAGNOSIS: Screening colonoscopy. POSTOPERATIVE DIAGNOSIS: Screening colonoscopy. RISKS: Risks, benefits, alternatives, and limitations including, but not limited to infection, bleeding, perforation, false positives and false negatives were explained to the patient who wished to proceed. PROCEDURE IN DETAIL: The patient was placed in left lateral decubitus position. Digital rectal exam was performed without abnormality. Scope was introduced and advanced atraumatically to the ileocecal valve. A photo was taken of the appendiceal orifice. Scope was brought back to the ascending, transverse, descending colon, and retroflexed. No evidence of old or new blood. No masses. No polyps. The diverticulosis would be described as mild, limited to sigmoid colon without evidence of diverticulitis or bleeding. No abnormalities on retroflexion. Greater than 8 minutes was spent removing the scope. The prep was acceptable, approximately 90% of the luminal surface could be seen. The patient tolerated the procedure well. Jaya Whitehead MD /[id number]
== END 2021-03-04 11:15 | disposition home or self-care (01) ==
LOC: JP.SDS 08:29
PROVIDERS: ATTEND Surgery
DX: Z12.11 Encounter for screening for malignant neoplasm of colon (principal); K57.30 Diverticulosis of large intestine without perforation or abscess without bleeding; I10 Essential (primary) hypertension; J44.9 Chronic obstructive pulmonary disease, unspecified
CPT/HCPCS: A9270; G0121; J2250; J2704; J3010; J7030